=== PATIENT | female | born 1975 | race Caucasian/White ===

== ENCOUNTER 2020-05-17 14:08 | Inpatient (IN) | payer BC ==
[2020-05-17] MEDS ORDERED: amLODIPine 5 MG TAB PO STA (14:46)
[2020-05-17] MEDS ORDERED: SODIUM CHLORIDE 0.9% 500 ML 500 ML IV STA (14:46)
[2020-05-17 15:03] LABS: Basophils # (A) 0.1 k/uL (0-0.2); Basophils % (A) 0 %; Eosinophils # (A) 0.2 k/uL (0-0.7); Eosinophils % (A) 1 %; HCT 42.6 % (34.0-46.0); Lymphocytes # (A) 2.9 k/uL (1.0-4.8); Lymphocytes % (A) 22 %; MCHC 32.9 g/dL (31.0-37.0); MCV 82.2 fL (80.0-100.0); Mean Platelet Volume 6.8; Monocytes # (A) 0.5 k/uL (0-1.0); Monocytes % (A) 3 %; Neutrophils # (A) 9.6 k/uL (1.3-7.7); Neutrophils % (A) 72 %; Platelet Count 413 k/uL (150-450); RBC 5.19 m/uL (3.80-5.40); RDW 14.8 % (11.5-15.5); WBC 13.3 k/uL (3.8-10.6)
[2020-05-17 15:16] LABS: ALT 11 U/L (4-34); AST 18 U/L (14-36); African American GFR (CKD) >90 (>60 ml/min/1.73 sqM); Albumin 4.3 g/dL (3.5-5.0); Alkaline Phosphatase 167 U/L (38-126); Anion Gap 9 mmol/L; Blood Urea Nitrogen 13 mg/dL (7-17); Calcium 10.2 mg/dL (8.4-10.2); Carbon Dioxide 25 mmol/L (22-30); Chloride 101 mmol/L (98-107); Glucose 338 mg/dL (74-99); Non-African American GFR(CKD) >90 (>60 ml/min/1.73 sqM); Potassium 4.3 mmol/L (3.5-5.1); Sodium 135 mmol/L (137-145); Total Bilirubin 0.8 mg/dL (0.2-1.3); Total Protein 8.5 g/dL (6.3-8.2)
[2020-05-17] MEDS ORDERED: LABETALOL 5 MG/ML VIAL MDV IVP STA (15:19)
--- NOTE | 2020-05-17 15:20 | XR ---
EXAMINATION TYPE: XR chest 2V DATE OF EXAM: 05/17/2020 COMPARISON: None INDICATION: Altered mental status TECHNIQUE: Frontal and lateral views of the chest are obtained. FINDINGS: The heart size is normal. The pulmonary vasculature is normal. The lungs are clear. IMPRESSION: 1. No acute pulmonary process.
[2020-05-17 15:22] LABS: INR 0.9 (<1.2); Prothrombin Time 9.5 sec (9.0-12.0)
--- NOTE | 2020-05-17 15:27 | CT ---
EXAMINATION TYPE: CT brain wo con for TPA DATE OF EXAM: 05/17/2020 HISTORY: Left sided numbness and weakness. CT DLP: 1188.4 mGycm. Automated Exposure Control for Dose Reduction was Utilized. TECHNIQUE: CT scan of the head is performed without contrast. COMPARISON: None FINDINGS: There is no acute intracranial hemorrhage, midline shift, or mass effect identified. Brain parenchyma appears normal. The ventricles, sulci, and cisterns are normal in size and configuration. No extra-axial fluid collection. Bones and extracranial soft tissues are intact. The globes are gross ly symmetric. Visualized sinuses and mastoid air cells are clear. IMPRESSION: No acute intracranial hemorrhage, midline shift, or mass effect.
[2020-05-17] MEDS ORDERED: SODIUM CHLORIDE 0.9% 1,000 ML IV SCH (15:30)
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
[2020-05-17 15:39] LABS: Partial Thromboplastin Time 21.5 sec (22.0-30.0)
[2020-05-17] MEDS ORDERED: ASPIRIN 325 MG TAB PO STA (15:42)
--- NOTE | 2020-05-17 15:51 | ED ---
General Adult HPI - General Chief complaint: Recheck/Abnormal Lab/Rx Stated complaint: High Blood Pressure Time Seen by Provider: 05/17/20 14:42 Source: patient, RN notes reviewed, old records reviewed Mode of arrival: ambulatory Limitations: no limitations - History of Present Illness Initial comments: 45-year-old female presenting for evaluation of hypertension. Patient states she was previously on hypertension medication but has not taken this in some time. She called her primary care physician who recommended she present to the emergency department. She had a significantly elevated blood pressure over 200 systolic. Patient admits that on Wednesday she had an episode where she could not speak. She was unable to find words. This was associated with some left arm numbness. Patient has no previous history of TIA or CVA. The symptoms re solved in approximately 10 minutes. This was transferred days prior to arrival in the emergency department. She has no specific complaints the time my evaluation. No chest pain or abdominal pain. No thunderclap headache. No fever chills, no cough or URI. - Related Data Allergies Allergy/AdvReac Type Severity Reaction Status Date / Time No Known Allergies Allergy Verified 05/17/20 14:28 Review of Systems ROS Statement: Those systems with pertinent positive or pertinent negative responses have been documented in the HPI. ROS Other: All systems not noted in ROS Statement are negative. Past Medical History Past Medical History: Hypertension History of Any Multi-Drug Resistant Organisms: None Reported Past Surgical History: Section, Cholecystectomy Past Psychological History: No Psychological Hx Reported Smoking Status: Never smoker Past Alcohol Use History: None Reported Past Drug Use History: None Reported General Exam Limitations: no limitations General appearance: alert, in no apparent distress Head exam: Present: atraumatic, normocephalic Eye exam: Present: normal appearance, PERRL ENT exam: Present: normal exam Neck exam: Present: normal inspection. Absent: tenderness Respiratory exam: Absent: respiratory distress, wheezes Cardiovascular Exam: Present: regular rate, normal rhythm GI/Abdominal exam: Present: soft. Absent: distended, tenderness, guarding Extremities exam: Present: normal inspection, normal capillary refill. Absent: pedal edema Neurological exam: Present: alert, oriented X3, CN II-XII intact. Absent: motor sensory deficit (NIH of 0) Psychiatric exam: Present: normal affect, normal mood Skin exam: Present: warm, dry, intact. Absent: cyanosis, diaphoretic Course Vital Signs 05/17/20 05/17/20 05/17/20 14:22 15:01 15:26 Temperature 98.8 F Pulse Rate 111 H 105 H 109 H Respiratory 20 16 18 Rate Blood Pressure 257/121 225/194 217/124 O2 Sat by Pulse 98 97 98 Oximetry 05/17/20 05/17/20 15:32 16:05 Temperature Pulse Rate 88 93 Respiratory 18 18 Rate Blood Pressure 207/107 200/110 O2 Sat by Pulse 97 98 Oximetry EKG Findings - EKG Comments: EKG Findings:: EKG: Normal sinus rhythm, LVH, rate of 91, OR interval 170, QRS duration 92, QTC 452, no ST segment elevation Medical Decision Making - Medical Decision Making 45-year-old female presenting with hypertension, and history concerning for TIA. She has normal neurologic exam. NIH is 0. Very elevated blood pressure 240/ 140. She is given Norvasc, labetalol in the emergency department. Head CT is performed which is negative for intracranial hemorrhage or mass effect. Chest x-rays negative for acute cardiopulmonary disease. She has normal stable hemoglobin, normal kidney for his, normal x-rays, she has significantly elevated blood sugar 348 with no history of diabetes. She has been evaluated by Dr. Torres in the emergency department case has been discussed with Dr. Roth who will admit. Further TIA workup has been initiated. Blood pressure will be monitored closely. - Lab Data Result diagrams: 05/17/20 14:53 05/17/20 14:53 Lab Results 05/17/20 05/17/20 05/17/20 Range/Units 14:53 14:53 14:53 WBC 13.3 H (3.8-10.6) k/uL RBC 5.19 (3.80-5.40) m/uL Hgb 14.0 (11.4-16.0) gm/dL Hct 42.6 (34.0-46.0) % MCV 82.2 (80.0-100.0) fL MCH 27.0 (25.0-35.0) pg MCHC 32.9 (31.0-37.0) g/dL RDW 14.8 (11.5-15.5) % Plt Count 413 (150-450) k/uL Neutrophils % 72 % Lymphocytes % 22 % Monocytes % 3 % Eosinophils % 1 % Basophils % 0 % Neutrophils # 9.6 H (1.3-7.7) k/uL Lymphocytes # 2.9 (1.0-4.8) k/uL Monocytes # 0.5 (0-1.0) k/uL Eosinophils # 0.2 (0-0.7) k/uL Basophils # 0.1 (0-0.2) k/uL PT 9.5 (9.0-12.0) sec INR 0.9 (<1.2) APTT 21.5 L (22.0-30.0) sec Sodium 135 L (137-145) mmol/L Potassium 4.3 (3.5-5.1) mmol/L Chloride 101 (98-107) mmol/L Carbon Dioxide 25 (22-30) mmol/L Anion Gap 9 mmol/L BUN 13 (7-17) mg/dL Creatinine 0.52 (0.52-1.04) mg/dL Est GFR (CKD-EPI)AfAm >90 (>60 ml/min/1.73 sqM) Est GFR (CKD-EPI)NonAf >90 (>60 ml/min/1.73 sqM) Glucose 338 H (74-99) mg/dL Calcium 10.2 (8.4-10.2) mg/dL Total Bilirubin 0.8 (0.2-1.3) mg/dL AST 18 (14-36) U/L ALT 11 (4-34) U/L Alkaline Phosphatase 167 H (38-126) U/L Troponin I (0.000-0.034) ng/mL Total Protein 8.5 H (6.3-8.2) g/dL Albumin 4.3 (3.5-5.0) g/dL 05/17/20 Range/Units 14:53 WBC (3.8-10.6) k/uL RBC (3.80-5.40) m/uL Hgb (11.4-16.0) gm/dL Hct (34.0-46.0) % MCV (80.0-100.0) fL MCH (25.0-35.0) pg MCHC (31.0-37.0) g/dL RDW (11.5-15.5) % Plt Count (150-450) k/uL Neutrophils % % Lymphocytes % % Monocytes % % Eosinophils % % Basophils % % Neutrophils # (1.3-7.7) k/uL Lymphocytes # (1.0-4.8) k/uL Monocytes # (0-1.0) k/uL Eosinophils # (0-0.7) k/uL Basophils # (0-0.2) k/uL PT (9.0-12.0) sec INR (<1.2) APTT (22.0-30.0) sec Sodium (137-145) mmol/L Potassium (3.5-5.1) mmol/L Chloride (98-107) mmol/L Carbon Dioxide (22-30) mmol/L Anion Gap mmol/L BUN (7-17) mg/dL Creatinine (0.52-1.04) mg/dL Est GFR (CKD-EPI)AfAm (>60 ml/min/1.73 sqM) Est GFR (CKD-EPI)NonAf (>60 ml/min/1.73 sqM) Glucose (74-99) mg/dL Calcium (8.4-10.2) mg/dL Total Bilirubin (0.2-1.3) mg/dL AST (14-36) U/L ALT (4-34) U/L Alkaline Phosphatase (38-126) U/L Troponin I <0.012 (0.000-0.034) ng/mL Total Protein (6.3-8.2) g/dL Albumin (3.5-5.0) g/dL Critical Care Time Critical Care Time: Yes Total Critical Care Time: 35 Disposition Clinical Impression: TIA (transient ischemic attack), Hypertension, Hypertensive urgency Disposition: ADMITTED IP TO THIS [facility] Condition: Stable Is patient prescribed a controlled substance at d/c from ED?: No Referrals: None,Stated [Primary Care Provider] - 1-2 days Decision to Admit Reason: Admit from EC Decision Date: 05/17/20 Decision Time: 16:20
--- NOTE | 2020-05-17 17:33 | CT ---
EXAMINATION TYPE: CT angio head neck DATE OF EXAM: 05/17/2020 COMPARISON: HISTORY: Left sided weakness with HTN. CT DLP: 1027.4 mGycm Automated exposure control for dose reduction was used. CONTRAST: Performed with IV Contrast, patient injected with 65 mL of Isovue 370. Images obtained from the aortic arch to the vertex of the brain with 3-D post processed images. FINDINGS: There is normal branching pattern of the great vessels on the aortic arch. There is arterial flow in both subclavian arteries. There is arterial flow in the common internal and external carotid arteries bilaterally. There is wide patency of the carotid artery bifurcations. There is arterial flow in bot h vertebral arteries which appear widely patent. There is no evidence of carotid or vertebral artery aneurysm or dissection. There is arterial flow in the anterior middle and posterior cerebral arteries. There is arterial flow in the vertebrobasilar artery system. There is no evidence of arterial stenosis. There is no mass ef fect. There is no sign of aneurysm or neovascularity. There is normal contrast opacification of the v enous sinuses. IMPRESSION: Normal CT angiogram of the neck. Normal CT angiogram of the brain.
[2020-05-17] MEDS ORDERED: ALPRAZolam 0.25 MG TAB PO PRN (19:20)
[2020-05-17 20:17] LABS: Glucose,Whole Blood 314 mg/dL (75-99)
[2020-05-17] MEDS: cloNIDine HCL 0.1 MG TAB PO PRN (20:19)
--- NOTE | 2020-05-17 20:44 | HP ---
HISTORY AND PHYSICAL CHIEF COMPLAINTS: Slurring of speech and numbness of the left hand and hypertension. HISTORY OF PRESENT ILLNESS: This 45-year-old woman with a past medical history of hypertension, cholecystectomy, to be followed by Dr. Henry in the outpatient setting, apparently was noted to have some slurring of speech as well as some weakness and numbness of left hand which lasted for about 10 minutes. The patient was evaluated by her primary care physician. The blood pressure was found to be elevated up to 204/117. The patient was taken to [facility] and was admitted for further evaluation and treatment. Initial workup for stroke was negative. Neurology evaluation is in progress at this time. CT angio was done and MRI is pending at this time. There is no history of any fever, rigor or chills. No history of headache, loss of consciousness, seizures at this time. Aggressive control of blood pressure recommended by Dr. Torres. PAST MEDICAL HISTORY: History of hypertension, history of cholecystectomy, section. MEDICATIONS: None. ALLERGIES: NONE. FAMILY HISTORY: History of lymphoma, leukemia, multiple myeloma. SOCIAL HISTORY: No history of smoking. No history of alcohol intake. REVIEW OF SYSTEMS: ENT: No diminished hearing. No diminished vision. CARDIOVASCULAR SYSTEM: No angina, palpitations. RESPIRATORY SYSTEM: As mentioned earlier. GI: No nausea, vomiting. : No dysuria or retention. NERVOUS SYSTEM: No numbness, weakness. ALLERGY/IMMUNOLOGY: No asthma, hayfever. MUSCULOSKELETAL: As mentioned earlier. HEMATOLOGY/ONCOLOGY: No history of anemia. ENDOCRINE: No history of diabetes, hypothyroidism. CONSTITUTIONAL: As mentioned earlier. DERMATOLOGY: Negative. RHEUMATOLOGY: Negative. PSYCHIATRY: As mentioned earlier. PHYSICAL EXAMINATION: Patient alert and oriented x3. Pulse 90, blood pressure 160/90, respiration 18, temperature 98.1, pulse ox 97% on room air. HEENT: Conjunctivae normal. Oral mucosa moist. NECK: No jugular venous distention. No carotid bruit. No lymph node enlargement. CARDIOVASCULAR SYSTEM: S1, S2 muffled. No S3. No S4. RESPIRATORY SYSTEM: Breath sounds diminished at the bases. No rhonchi. No crackles. ABDOMEN: Soft, non-tender. No mass palpable. LEGS: No edema. No swelling. NERVOUS SYSTEM: Higher functions as mentioned earlier. Moves all 4 limbs. No focal motor or sensory deficit. LYMPHATICS: No lymph node palpable in neck, axillae or groin. SKIN: No ulcer, rash, bleeding. JOINTS: No active deforming arthropathy. LABS: Labs at this time show WBC 13.3 and sodium 135. Glucose is 338. ASSESSMENT: 1. Accelerated hypertension. 2. Acute transient ischemic attack with slurring of speech and left-sided numbness, possibly right hemispheric lesion. 3. Increased white count. 4. Hyponatremia. 5. Diabetes mellitus, type 2, new onset, uncontrolled. 6. Increased alkaline phosphatase. 7. History of hypertension. 8. History of cholecystectomy. 9. Obesity with body mass index of 38.9. 10.FULL CODE. RECOMMENDATIONS AND DISCUSSION: In this 45-year-old woman who presented with multiple complex medical issues, we will monitor the patient closely, continue the current medications, continue symptomatic treatment. Will initiate beta blockers and Norvasc and continue to monitor. Antiplatelet agents, Lipitor. Full neurovascular workup. Neurology consultation. Prognosis guarded because of multiple complex medical issues. Further recommendations to follow. A copy of this dictation is being forwarded to Dr. Henry, who is going to be the primary physician. MMODL / IJN: [id number] /
[2020-05-17] MEDS: HEPARIN SODIUM,PORCINE 5,000 UNIT/ML 1 ML VIAL SQ SCH (22:01)
[2020-05-17] MEDS: INSULIN ASPART (NovoLOG) 100 UNIT/ML VIAL SQ SCH (22:02)
[2020-05-17] MEDS: METOPROLOL TARTRATE 50 MG TAB PO SCH (22:02)
[2020-05-17 22:34] LABS: Amphetamine Screen,Urine Not Detected (NotDetected); Barbiturate Screen,Urine Not Detected (NotDetected); Benzodiazepines Screen,Urine Not Detected (NotDetected); Cocaine Screen,Urine Not Detected (NotDetected); Methadone Screen, Urine Not Detected (NotDetected); Opiate Screen,Urine Not Detected (NotDetected); Oxycodone Screen, Urine Not Detected (NotDetected); Phencyclidine Screen,Urine Not Detected (NotDetected); Tricyclic Antidepressant,Urine Not Detected (NotDetected); Urn Cannabinoid Scrn Not Detected (NotDetected)
[2020-05-18 04:51] LABS: Estimated Average Glucose 332.14; Hemoglobin A1C 13.2 % (4.0-6.0)
[2020-05-18 06:33] LABS: Glucose,Whole Blood 252 mg/dL (75-99)
[2020-05-18] MEDS: INSULIN ASPART (NovoLOG) 100 UNIT/ML VIAL SQ SCH ×4 (06:43→21:44)
[2020-05-18] MEDS: PANTOPRAZOLE 40 MG TABLET PO SCH (06:43)
[2020-05-18 08:12] LABS: Basophils % (A) 0 %; Eosinophils # (A) 0.1 k/uL (0-0.7); Eosinophils % (A) 1 %; HCT 38.1 % (34.0-46.0); Lymphocytes # (A) 2.7 k/uL (1.0-4.8); Lymphocytes % (A) 26 %; MCH 26.3 pg (25.0-35.0); MCHC 31.5 g/dL (31.0-37.0); MCV 83.6 fL (80.0-100.0); Monocytes # (A) 0.3 k/uL (0-1.0); Monocytes % (A) 3 %; Neutrophils % (A) 68 %; Platelet Count 358 k/uL (150-450); RBC 4.55 m/uL (3.80-5.40); RDW 15.1 % (11.5-15.5); WBC 10.3 k/uL (3.8-10.6)
[2020-05-18 08:31] LABS: African American GFR (CKD) >90 (>60 ml/min/1.73 sqM); Anion Gap 7 mmol/L; Blood Urea Nitrogen 10 mg/dL (7-17); Calcium 9.1 mg/dL (8.4-10.2); Carbon Dioxide 27 mmol/L (22-30); Chloride 101 mmol/L (98-107); Cholesterol 198 mg/dL (<200); Glucose 239 mg/dL (74-99); HDL Cholesterol 39 mg/dL (40-60); Non-African American GFR(CKD) >90 (>60 ml/min/1.73 sqM); Sodium 135 mmol/L (137-145); Triglycerides 402 mg/dL (<150)
--- NOTE | 2020-05-18 08:52 | MR ---
EXAMINATION TYPE: MR brain wo con DATE OF EXAM: 05/18/2020 COMPARISON: NONE HISTORY: Dizziness, numbness/tingling in left arm and tongue, loss of speech, 5 min duration TECHNIQUE: T1-weighted sagittal, T2, FLAIR, and diffusion axial, and T2 coronal coronal views of the brain are submitted. FINDINGS: On diffusion there is increased signal along the frontal lobes bilaterally which most likely is artif actual but should be correlated clinically particular attention to image 24. Tiny areas of abnormal signal seen in the thalamus and basal ganglia may be related to prominent Virc how-Claudio spaces in time and remote lacunar infarct. Changes of chronic sinusitis are seen. No midlin e shift or mass effect. Craniocervical junction maintained and sella turcica has a normal appearance. Trace amount of fluid surrounding the optic nerves greater than left. IMPRESSION: 1. Tiny areas of abnormal signal seen in the upper anterior frontal cortex of the frontal lobes bilat erally felt to be more likely artifactual rather than tiny areas of acute ischemia. Correlate with th e patient's symptoms. 2. Trace amount of fluid surrounding the optic nerve on the left. Correlate with ocular exam as this can occasionally be seen with papilledema. 3. Chronic sinusitis.
[2020-05-18] MEDS: amLODIPine 10 MG TAB PO SCH (09:04)
[2020-05-18] MEDS: HEPARIN SODIUM,PORCINE 5,000 UNIT/ML 1 ML VIAL SQ SCH ×2 (09:04→21:44)
[2020-05-18] MEDS: ASPIRIN 325 MG TAB PO SCH (09:04)
[2020-05-18] MEDS: METOPROLOL TARTRATE 50 MG TAB PO SCH (09:04)
[2020-05-18] MEDS: cloNIDine HCL 0.1 MG TAB PO PRN ×2 (09:04→13:27)
[2020-05-18] MEDS: HYDROcodone/APAP 5-325MG 1 EACH TAB PO PRN (09:13)
[2020-05-18 11:13] VITALS: BMI 40.2
[2020-05-18 11:54] LABS: Glucose,Whole Blood 343 mg/dL (75-99)
[2020-05-18] MEDS ORDERED: ONDANSETRON 4 MG/2 ML VIAL IVP PRN (12:34)
[2020-05-18] MEDS ORDERED: lisinopriL 10 MG TAB PO SCH (14:30)
[2020-05-18] MEDS ORDERED: hydrALAZINE HCL 20 MG/ML 1 ML VIAL IVP PRN (14:43)
[2020-05-18] MEDS ORDERED: INSULIN DETEMIR (LEVEMIR) 100 UNIT/ML SYR SQ ONE (15:00)
--- NOTE | 2020-05-18 15:53 | PN ---
PROGRESS NOTE DATE OF SERVICE: 05/18/2020 This 45-year-old woman who was admitted with acute accelerated hypertension/TIA is being closely monitored. MRI did not show acute abnormality. Angiogram is negative. No chest pain. No palpitations. No fever. Complaints of headache and nausea. PHYSICAL EXAMINATION: Alert and oriented times three. Pulse 86, blood pressure 118/91, respirations 16, temperature 98.2, pulse ox 97% on room air. HEENT: Conjunctivae normal. NECK: No JVD. CARDIOVASCULAR: S1, S2. Respirations: Breath sounds diminished in the bases. A few scattered rhonchi and crackles. ABDOMEN: Soft, nontender. LEGS are no edema. No swelling. NERVOUS SYSTEM: No focal deficits. LABS: Glucose is 343. Drug screen is negative. ASSESSMENT: 1. Accelerated hypertension. 2. Acute transient ischemic attack and slurring of speech and left-sided numbness. 3. Possibly left hemispheric lesion. 4. Increased WBC. 5. Diabetes mellitus type 2. 6. Hyperglycemia with new onset uncontrolled. 7. Hyponatremia. 8. Increased alkaline phosphatase. 9. History of hypertension. 10.History of cholecystectomy. 11.Obesity with body mass index of 38.9. 12.FULL CODE. RECOMMENDATIONS AND DISCUSSION: Recommend to continue current management and symptomatic treatment. Otherwise at this time we will add lisinopril to the current regimen. I would also recommend increase the dose of Lantus and continue to monitor. Further recommendations to follow. MMODL / IJN: [id number] /
--- NOTE | 2020-05-18 16:44 | ECHOF ---
Referral Reason:Stroke MEASUREMENTS -------- HEIGHT: 165.1 cm WEIGHT: 109.3 kg BP: 149/71 RVIDd: 3.1 cm (< 3.3) IVSd: 1.6 cm (0.6 - 1.1) LVIDd: 3.7 cm (3.9 - 5.3) LVPWd: 1.6 cm (0.6 - 1.1) IVSs: 1.8 cm LVIDs: 2.9 cm LVPWs: 2.2 cm LA Diam: 3.9 cm (2.7 - 3.8) LAESV Index (A-L): 32.25 ml/m Ao Diam: 3.2 cm (2.0 - 3.7) AV Cusp: 1.9 cm (1.5 - 2.6) MV EXCURSION: 16.226 mm (> 18.000) MV EF SLOPE: 100 mm/s (70 - 150) EPSS: 0.7 cm MV E Ken: 1.16 m/s MV DecT: 190 ms MV A Ken: 1.35 m/s MV E/A Ratio: 0.85 AV maxP.80 mmHg AV meanP.04 mmHg FINDINGS -------- Sinus rhythm. This was a technically good study. The left ventricular size is normal. There is moderate concentric left ventricular hypertrophy. O verall left ventricular systolic function is normal with, an EF between 60 - 65 %. The right ventricle is normal in size. LA is midly dilated 29-33ml/m2. The right atrium is normal in size. Interatrial and interventricular septum intact. The aortic valve is trileaflet and appears structurally normal. Mild mitral regurgitation is present. The tricuspid valve appears structurally normal. There is no pulmonic regurgitation present. The aortic root size is normal. Normal inferior vena cava with normal inspiratory collapse consistent with estimated right atrial pre ssure of 5 mmHg. Echo free space indicative of a pericardial fat pad. There is no pericardial effusion. CONCLUSIONS -------- 1. The left ventricular size is normal. 2. There is moderate concentric left ventricular hypertrophy. 3. Overall left ventricular systolic function is normal with, an EF between 60 - 65 %. 4. LA is midly dilated 29-33ml/m2. 5. Mild mitral regurgitation is present. 6. Echo free space indicative of a pericardial fat pad. ACCOUNT REVIEW SPECIALIST: Daya Galindo RDCS
[2020-05-18 17:33] LABS: Glucose,Whole Blood 222 mg/dL (75-99)
[2020-05-18] MEDS: metFORMIN 500 MG TAB PO SCH (17:43)
[2020-05-18 18:23] LABS: Glucose,Whole Blood 266 mg/dL (75-99)
[2020-05-18] MEDS ORDERED: atenoloL 25 MG TAB PO SCH (19:00)
[2020-05-18] MEDS: lisinopriL 10 MG TAB PO SCH (19:38)
[2020-05-18 20:43] LABS: Glucose,Whole Blood 311 mg/dL (75-99)
[2020-05-19] MEDS: HYDROcodone/APAP 5-325MG 1 EACH TAB PO PRN ×2 (00:17→16:03)
[2020-05-19 06:22] LABS: Glucose,Whole Blood 233 mg/dL (75-99)
[2020-05-19] MEDS: cloNIDine HCL 0.1 MG TAB PO PRN (06:29)
[2020-05-19] MEDS: PANTOPRAZOLE 40 MG TABLET PO SCH (06:53)
[2020-05-19 07:11] LABS: Basophils % (A) 0 %; Eosinophils # (A) 0.1 k/uL (0-0.7); Eosinophils % (A) 1 %; HGB 12.6 gm/dL (11.4-16.0); Lymphocytes # (A) 3.1 k/uL (1.0-4.8); Lymphocytes % (A) 23 %; MCHC 32.4 g/dL (31.0-37.0); MCV 83.3 fL (80.0-100.0); Mean Platelet Volume 6.9; Monocytes # (A) 0.6 k/uL (0-1.0); Monocytes % (A) 4 %; Neutrophils # (A) 9.2 k/uL (1.3-7.7); Neutrophils % (A) 70 %; Platelet Count 411 k/uL (150-450); RBC 4.68 m/uL (3.80-5.40); WBC 13.2 k/uL (3.8-10.6)
[2020-05-19 07:22] LABS: African American GFR (CKD) >90 (>60 ml/min/1.73 sqM); Anion Gap 8 mmol/L; Blood Urea Nitrogen 15 mg/dL (7-17); Calcium 9.4 mg/dL (8.4-10.2); Carbon Dioxide 25 mmol/L (22-30); Chloride 102 mmol/L (98-107); Glucose 286 mg/dL (74-99); Non-African American GFR(CKD) >90 (>60 ml/min/1.73 sqM); Potassium 4.7 mmol/L (3.5-5.1); Sodium 135 mmol/L (137-145)
[2020-05-19 08:27] LABS: Glucose,Whole Blood 248 mg/dL (75-99)
[2020-05-19] MEDS: atenoloL 50 MG TAB PO SCH (08:57)
[2020-05-19] MEDS: lisinopriL 10 MG TAB PO SCH ×2 (08:57→21:02)
[2020-05-19] MEDS: amLODIPine 10 MG TAB PO SCH (08:57)
[2020-05-19] MEDS: INSULIN DETEMIR (LEVEMIR) 100 UNIT/ML SYR SQ SCH ×2 (08:58→21:03)
[2020-05-19] MEDS: INSULIN ASPART (NovoLOG) 100 UNIT/ML VIAL SQ SCH ×4 (08:58→21:03)
[2020-05-19] MEDS: HEPARIN SODIUM,PORCINE 5,000 UNIT/ML 1 ML VIAL SQ SCH ×2 (08:58→21:02)
[2020-05-19] MEDS: metFORMIN 500 MG TAB PO SCH ×2 (08:58→17:14)
[2020-05-19] MEDS: ASPIRIN 325 MG TAB PO SCH (08:58)
[2020-05-19 12:07] LABS: Glucose,Whole Blood 217 mg/dL (75-99)
--- NOTE | 2020-05-19 16:00 | PN ---
PROGRESS NOTE DATE OF SERVICE: 05/19/2020 This is a 45-year-old woman who was admitted with acute accelerated hypertension and hypertensive urgency, also had features of TIA. The patient's blood pressure is fluctuating. Patient has labile hypertension. The patient is on multiple blood pressure medication. Patient also complaining of tingling of the left arm. TIA was considered. The patient had extensive neurovascular workup which was negative. Neurology has seen the patient. There is no history of chest pain and brain MRI has been done. A 2D echo was done yesterday which was reviewed personally by me and showed an ejection fraction about 60-65% and mild mitral regurgitation. The patient also had elevated blood sugars with a hemoglobin A1c around more than 13. Patient is on IV Lantus at this time. PAST MEDICAL HISTORY: Reviewed. REVIEW OF SYSTEMS: CARDIOVASCULAR: No angina. RESPIRATORY: As mentioned earlier. GI: As mentioned earlier. : No dysuria. NERVOUS SYSTEM: No numbness or weakness. CURRENT MEDICATIONS: Reviewed and include [place], Xanax, Norvasc, aspirin, Tenormin, Catapres p.r.n., heparin, Apresoline p.r.n., Levemir, Zestril, Glucophage, Zofran, Protonix. PHYSICAL EXAMINATION: GENERAL: Patient is alert and oriented times three. VITAL SIGNS: Pulse 73, blood pressure 140/70, respirations 18, temperature 98.3, pulse ox 98% on room air HEENT: Conjunctivae normal. NECK: No jugular venous distention. RESPIRATORY: Breath sounds diminished at the bases. A few scattered rhonchi and crackles. HEART: S1 and S2, muffled. ABDOMEN: Soft, no tenderness. No masses palpable. EXTREMITIES: No edema, no swelling. NERVOUS: No focal deficits. LAB STUDIES: WBC 13.8, Hemoglobin 12.2, sodium 135. Accu-Cheks are noted 248 to 217. ASSESSMENT: 1. Accelerated hypertension and hypertensive urgency. 2. Acute transient ischemic attack and slurring of speech and left hand numbness caused by right hemispheric lesion. 3. Increased WBC. 4. Acute gastritis. 5. Diabetes mellitus type 2, uncontrolled with hyperglycemia, new onset, hemoglobin A1c 13.2. 6. Hyponatremia. 7. Increased alkaline phosphatase. 8. History hypertension. 9. History of cholecystectomy. 10.Obesity with body mass of 38.9. 11.FULL CODE. RECOMMENDATIONS AND DISCUSSION: I recommend to continue current medications, continue symptomatic treatment. Adjust the blood pressure medication. I would recommend cardiology consultation. Neurology is following the patient closely. I would provide symptomatic treatment. Monitor blood pressure closely. Continue adjustments. Prognosis guarded because of multiple complex medical issues. Further recommendations to follow. MMODL / IJN: [id number] /
[2020-05-19 16:52] LABS: Glucose,Whole Blood 183 mg/dL (75-99)
[2020-05-19 20:57] LABS: Glucose,Whole Blood 169 mg/dL (75-99)
[2020-05-19] MEDS: PANTOPRAZOLE 40 MG/10 ML VIAL IVP SCH (21:03)
[2020-05-20] MEDS ORDERED: ONDANSETRON 4 MG/2 ML VIAL ONE (04:30)
[2020-05-20 04:40] LABS: Glucose,Whole Blood 203 mg/dL (75-99)
[2020-05-20 06:26] LABS: Glucose,Whole Blood 238 mg/dL (75-99)
[2020-05-20] MEDS: metFORMIN 500 MG TAB PO SCH (07:09)
[2020-05-20] MEDS: INSULIN ASPART (NovoLOG) 100 UNIT/ML VIAL SQ SCH ×2 (07:10→12:31)
[2020-05-20 07:56] LABS: Basophils % (A) 0 %; Eosinophils # (A) 0.1 k/uL (0-0.7); Eosinophils % (A) 0 %; HCT 42.6 % (34.0-46.0); HGB 13.6 gm/dL (11.4-16.0); Lymphocytes # (A) 2.2 k/uL (1.0-4.8); Lymphocytes % (A) 13 %; MCH 26.7 pg (25.0-35.0); MCHC 31.8 g/dL (31.0-37.0); MCV 83.8 fL (80.0-100.0); Monocytes # (A) 0.4 k/uL (0-1.0); Monocytes % (A) 3 %; Neutrophils # (A) 14.8 k/uL (1.3-7.7); Neutrophils % (A) 84 %; Platelet Count 475 k/uL (150-450); RBC 5.09 m/uL (3.80-5.40); RDW 14.9 % (11.5-15.5); WBC 17.6 k/uL (3.8-10.6)
[2020-05-20 08:09] LABS: African American GFR (CKD) >90 (>60 ml/min/1.73 sqM); Anion Gap 10 mmol/L; Blood Urea Nitrogen 18 mg/dL (7-17); Calcium 9.4 mg/dL (8.4-10.2); Carbon Dioxide 23 mmol/L (22-30); Chloride 101 mmol/L (98-107); Glucose 282 mg/dL (74-99); Non-African American GFR(CKD) >90 (>60 ml/min/1.73 sqM); Potassium 4.3 mmol/L (3.5-5.1); Sodium 134 mmol/L (137-145)
[2020-05-20] MEDS: ASPIRIN 325 MG TAB PO SCH (08:12)
[2020-05-20] MEDS: amLODIPine 10 MG TAB PO SCH (08:12)
[2020-05-20] MEDS: lisinopriL 10 MG TAB PO SCH (08:12)
[2020-05-20] MEDS: atenoloL 50 MG TAB PO SCH (08:12)
[2020-05-20] MEDS: HEPARIN SODIUM,PORCINE 5,000 UNIT/ML 1 ML VIAL SQ SCH (08:13)
[2020-05-20] MEDS: PANTOPRAZOLE 40 MG/10 ML VIAL IVP SCH (08:13)
[2020-05-20] MEDS: INSULIN DETEMIR (LEVEMIR) 100 UNIT/ML SYR SQ SCH (08:13)
[2020-05-20] MEDS ORDERED: APIXABAN 5 MG TAB PO SCH (11:30)
[2020-05-20 11:56] LABS: Glucose,Whole Blood 226 mg/dL (75-99)
[2020-05-20] MEDS ORDERED: ATORVASTATIN 40 MG TAB PO SCH (12:15)
[2020-05-20 12:18] LABS: Appearance,Urine Cloudy (Clear); Bacteria,Urine Rare /hpf; Bilirubin,Urine Negative (Negative); Blood,Urine Negative (Negative); Color,Urine Yellow; Glucose,Urine (UA) 4+ (Negative); Leukocyte Esterase,Urine Negative (Negative); Mucus,Urine Few /hpf; Nitrite,Urine Negative (Negative); PH, Urine 5.5 (5.0-8.0); Protein,Urine 1+ (Negative); Specific Gravity,Urine 1.019 (1.001-1.035); Squamous Epithelial Cell,Urine 6 /hpf (0-4); Urobilinogen,Urine <2.0 mg/dL (<2.0); WBC,Urine 2 /hpf (0-5)
[2020-05-20 12:22] LABS: Ketones,Urine 2+ (Negative)
--- NOTE | 2020-05-20 13:00 | CONS ---
CONSULTATION REASON FOR CONSULTATION: Episode of paroxysmal atrial fibrillation in a patient with a prior with known diabetes, hypertension, and TIA. Mrs. Dayanara Vargas is a 45-year-old lady with a diagnosis of hypertension who has not been very compliant with medications. Also has been diagnosed to have type 2 diabetes. She came in with what seems to be a TIA-like presentation and was also seen by Neurology. When she came in, she was in sinus rhythm and no atrial fibrillation was seen until yesterday. She has history of what seems to be an expressive aphasia briefly with tingling of the left arm, tongue that resolved within 5-7 minutes. She also had accelerated blood pressure at this time and elevated blood sugar. However. At the time of my evaluation, she is absolutely comfortable. No symptoms whatsoever. On reviewing the rhythm strips, the patient did have atrial fib with moderate ventricular rate but she is back in sinus rhythm with PACs at this time. PAST MEDICAL HISTORY: Recent diagnosis of hypertension and type 2 diabetes. She has migraine headaches. She was diagnosed with a TIA and seen by Neurology. EKG that was performed recently revealed atrial fibrillation with moderately rapid ventricular rate. She is now in sinus with PACs. MEDICATIONS AT HOME: Patient has not been not very compliant with medications and apparently she has not been taking any regular medications , but she is known to have hypertension and came in with accelerated hypertension as 1 of her presentations. She was given multiple medications for BP control. She also was found to have elevated blood sugar. PHYSICAL EXAMINATION: On examination, blood pressure is 140/70, pulse rate is about 80 per minute, irregular with PACs. HEENT: Unremarkable. Fundus was not examined by me. NECK: Supple. No JVD. I do not hear a carotid bruit. There is no thyromegaly. HEART: Exam reveals S1, S2 heard normally. There are occasional irregular beats, appears to be PACs on the monitor. Short systolic murmur left lower sternal border. Lungs revealed decent air entry. ABDOMEN: Soft, nontender. Lower extremities reveal diminished pulses. Central nervous system is normal. EKG performed yesterday revealed atrial fibrillation, moderate ventricular rate. Now rhythm strip appears to be sinus. Fundus was corrected. She had a CT angiogram of the head and neck, which revealed no significant disease. No significant obstruction of any major vessels. IMPRESSION: 1. Paroxysmal atrial fibrillation which could be an etiological factor for her TIA. 2. Accelerated hypertension under better control. 3. New onset type 2 diabetes mellitus. 4. History of migraine headaches. RECOMMENDATIONS: I am recommending that we will we will start her on Eliquis 5 mg b.i.d. given her atrial fibrillation and TIA. I am also increasing the metoprolol tartrate to 50 mg b.i.d. Her blood pressure is reasonably well controlled. I will add atorvastatin 40 mg p.o. daily and we will optimize her blood pressure control which appears to be fairly decent at this time and we will continue to monitor her telemetry. I will discontinue aspirin and speak to the neurologist. I discussed my thoughts in detail with the patient and and advised that she should be very compliant with her medications and optimize her BP control and also follow up with her PCP on a regular basis. Thank you very much for the consult. SARAH / GIOVANNA: [id number] /
[2020-05-20 13:08] LABS: Basophils % (A) 0 %; Eosinophils # (A) 0.3 k/uL (0-0.7); Eosinophils % (A) 2 %; HCT 42.3 % (34.0-46.0); HGB 13.4 gm/dL (11.4-16.0); Lymphocytes # (A) 2.4 k/uL (1.0-4.8); Lymphocytes % (A) 14 %; MCH 26.6 pg (25.0-35.0); MCHC 31.8 g/dL (31.0-37.0); MCV 83.5 fL (80.0-100.0); Mean Platelet Volume 9.1; Monocytes # (A) 0.4 k/uL (0-1.0); Monocytes % (A) 2 %; Neutrophils # (A) 13.7 k/uL (1.3-7.7); Neutrophils % (A) 81 %; Platelet Count 400 k/uL (150-450); RBC 5.06 m/uL (3.80-5.40); RDW 15.1 % (11.5-15.5); WBC 16.9 k/uL (3.8-10.6)
[2020-05-20 13:46] VITALS: BP 197/79; PULSE 100; RESP 18; TEMP 98.4
--- NOTE | 2020-05-20 15:58 | P.PN ---
Subjective Progress Note Date: 05/20/20 Patient was seen for a follow-up. Patient apparently started throwing up last night, and at that time her rhythm on the telemetry monitoring changed to atrial fibrillation. She is still in atrial fibrillation. Cardiology has seen the patient, recommending long-term anticoagulation. Patient states that she had migraine for last couple days. She feels the vomiting was related to migraine. Patient states that on 05/18/2020, patient had another episode of numbness of the left arm and tongue, but there was no associated slurred speech, and it lasted for 4 minutes and then resolved. At present she feels fine. Objective - Vital Signs Vital signs: Vital Signs Temp 98.4 F 05/20/20 12:00 Pulse 100 05/20/20 12:00 Resp 18 05/20/20 12:00 BP 197/79 05/20/20 12:00 Pulse Ox 99 05/20/20 12:00 Intake & Output 05/19/20 05/20/20 05/20/20 18:59 06:59 18:59 Intake Total 0 Output Total 400 Balance -400 0 Weight 108.1 kg Intake: Oral 0 Output: Emesis 400 Other: Voiding Method Toilet Toilet Toilet # Voids 3 3 - Exam On examination patient is a middle aged female, in no acute distress. Patient is alert and awake fully oriented speech and language functions are normal. Pupils are round and reacting, visual garcia are full, extraocular muscles are intact. Face is symmetric, tongue protrudes the midline. On muscle strength testing there is no pronator drift and the strength is normal in arms and legs. No ataxia. Tone and bulk of muscles normal. - Labs CBC & Chem 7: 05/20/20 12:52 05/20/20 07:35 Labs: Abnormal Lab Results - Last 24 Hours (Table) 05/19/20 05/19/20 05/20/20 Range/Units 16:51 20:55 04:38 WBC (3.8-10.6) k/uL Plt Count (150-450) k/uL Neutrophils # (1.3-7.7) k/uL ESR (0-20) mm/hr Sodium (137-145) mmol/L BUN (7-17) mg/dL Glucose (74-99) mg/dL POC Glucose (mg/dL) 183 H 169 H 203 H (75-99) mg/dL C-Reactive Protein (<10.0) mg/L Urine Appearance (Clear) Urine Protein (Negative) Urine Glucose (UA) (Negative) Urine Ketones (Negative) Ur Squamous Epith Cells (0-4) /hpf Urine Bacteria (None) /hpf Urine Mucus (None) /hpf 05/20/20 05/20/20 05/20/20 Range/Units 06:25 07:35 07:35 WBC 17.6 H (3.8-10.6) k/uL Plt Count 475 H (150-450) k/uL Neutrophils # 14.8 H (1.3-7.7) k/uL ESR (0-20) mm/hr Sodium 134 L (137-145) mmol/L BUN 18 H (7-17) mg/dL Glucose 282 H (74-99) mg/dL POC Glucose (mg/dL) 238 H (75-99) mg/dL C-Reactive Protein (<10.0) mg/L Urine Appearance (Clear) Urine Protein (Negative) Urine Glucose (UA) (Negative) Urine Ketones (Negative) Ur Squamous Epith Cells (0-4) /hpf Urine Bacteria (None) /hpf Urine Mucus (None) /hpf 05/20/20 05/20/20 05/20/20 Range/Units 07:35 07:35 11:15 WBC (3.8-10.6) k/uL Plt Count (150-450) k/uL Neutrophils # (1.3-7.7) k/uL ESR 76 H (0-20) mm/hr Sodium (137-145) mmol/L BUN (7-17) mg/dL Glucose (74-99) mg/dL POC Glucose (mg/dL) (75-99) mg/dL C-Reactive Protein 25.4 H (<10.0) mg/L Urine Appearance Cloudy H (Clear) Urine Protein 1+ H (Negative) Urine Glucose (UA) 4+ H (Negative) Urine Ketones 2+ H (Negative) Ur Squamous Epith Cells 6 H (0-4) /hpf Urine Bacteria Rare H (None) /hpf Urine Mucus Few H (None) /hpf 05/20/20 05/20/20 05/20/20 Range/Units 11:47 12:52 12:52 WBC 16.9 H (3.8-10.6) k/uL Plt Count (150-450) k/uL Neutrophils # 13.7 H (1.3-7.7) k/uL ESR (0-20) mm/hr Sodium (137-145) mmol/L BUN (7-17) mg/dL Glucose (74-99) mg/dL POC Glucose (mg/dL) 226 H (75-99) mg/dL C-Reactive Protein 26.5 H (<10.0) mg/L Urine Appearance (Clear) Urine Protein (Negative) Urine Glucose (UA) (Negative) Urine Ketones (Negative) Ur Squamous Epith Cells (0-4) /hpf Urine Bacteria (None) /hpf Urine Mucus (None) /hpf Assessment and Plan Assessment: * Recurrent transient ischemic attacks. Most likely cardioembolic from atrial fibrillation. * Newly diagnosed atrial fibrillation. * Uncontrolled hypertension * Uncontrolled diabetes. * Noncompliant with medication. * Hyperlipidemia Plan: * Patient's telemetry monitoring revealed atrial fibrillation. Patient has been started on Eliquis 5 mg twice a day to prevent recurrent strokes or TIAs related to atrial fibrillation. * We'll hold off on antiplatelet agent (ASA), because of hemorrhagic risk related to uncontrolled hypertension. * Aggressive control of blood pressure. Patient's blood pressure is still running 197/79 (most recent reading) * CTA of head and neck were reported as normal with no evidence of occlusion, stenosis, or aneurysm. * 2-D echo revealed normal left ventricular size, moderate concentric LVH, EF is 60-65%, left atrium is mildly dilated. Mild mitral regurgitation. * Patient's hemoglobin A1c 13.2 consistent with undiagnosed, uncontrolled diabetes for some time. Patient started on insulin. * Fasting a.m. lipid panel revealed cholesterol 198, LDL cannot be checked as triglycerides are very elevated 402, HDL 39. Patient started on Lipitor. May have to treat hypertriglyceridemia if continues to be highly elevated in the future.
[2020-05-20] MEDS ORDERED: METOPROLOL TARTRATE 50 MG TAB PO SCH (21:00)
[2020-05-20] MEDS ORDERED: PANTOPRAZOLE 40 MG TABLET PO SCH (21:00)
--- NOTE | 2020-05-21 04:38 | DS ---
DISCHARGE SUMMARY DATE OF SERVICE: 05/20/2020 FINAL DIAGNOSES: 1. Accelerated hypertension and hypertensive urgency. 2. Acute transient ischemic attack and slurring of speech and left hand numbness caused by right hemispheric lesion possibly. 3. Increased WBC. 4. Acute gastritis. 5. Diabetes mellitus type 2 uncontrolled with hyperglycemia, new onset, hemoglobin A1c 13.2. 6. Hyponatremia. 7. Increased alkaline phosphatase. 8. History of hypertension. 9. History of cholecystectomy. 10.Obesity with body mass index of 38.9. 11.FULL CODE. DISCHARGE DISPOSITION: The patient will be discharged in stable condition with guarded prognosis. Discharge cleared by Dr. Vargas. HISTORY OF PRESENT ILLNESS: This 45-year-old woman with a past medical history of multiple medical problems admitted with multiple medical issues including features of TIA, accelerated hypertension. Patient also had elevated WBC. The patient was treated symptomatically. Multiple neurological evaluations. Brain MRI was negative. Neurovascular workup was negative and Cardiology also saw the patient, recommended outpatient followup. On exam, vitals are stable. CARDIOVASCULAR: S1, S2 muffled. ABDOMEN: Soft. NERVOUS SYSTEM: No focal deficits. The patient's WBC was 16.9 and CRP was 26.5. Recommended outpatient followup. COVID-19 is pending. Triglycerides 402. DISCHARGE ADVICE: 1. Diet is cardiac. 2. Activity limited until followup. 3. Follow up with primary physician Erika Kahn in 2-3 days. 4. Follow up with Cardiology, Infectious Disease as mentioned earlier. Medications are: 1. Ecotrin 81 mg daily. 2. Eliquis 5 mg p.o. b.i.d. 3. Glucophage 1000 mg b.i.d. 4. Levemir 15 units subcu b.i.d. 5. Accu-Cheks a.c. and at bedtime and results to primary physician. 6. Lipitor 10 mg daily. 7. Norvasc 10 mg daily. 8. Tenormin 50 mg daily. 9. Zestril 10 mg b.i.d. Hold blood pressure medication if the systolic blood pressure less than 100. Once again, the patient will be discharged in stable condition with guarded prognosis. MMODL / IJN: [id number] /
[2020-05-22 11:39] LABS: ANA Pattern Homogeneous
--- NOTE | 2020-05-23 19:36 | P.CONS ---
History of Present Illness - Reason for Consult Consult date: 05/20/20 Leukocytosis Requesting physician: Jenni Roth - Chief Complaint Elevated blood pressure x one day - History of Present Illness Patient is a 45-year-old female presenting to the ER at [facility] on 05/17/2020 for evaluation of elevated blood pressure that was noticed by her primary care physician and the patient has been directed to go to the ER and she was noticed to have a blood pressure over 200 systolic patient also mentioned + the patient did have an episode that she would not speak and unable to find words and has some left arm numbness she subsequently has been admitted to the hospital with workup for possible CVA, patient did not have any fever during this admission she did have chest x-ray was negative for acute infiltrate CT of the brain was negative for any bleed patient also have a MRI of the brain which shows tiny areas of abnormal signal seen in the upper anterior frontal cortex of the frontal lobes bilaterally felt more likely artifact, patient did have elevated white count 13.3 on admission that subsequently normalized the next day to 10.3 however since then patient was noticed to have a white count is trending up it was 13.2 yesterday and is up to 17.6 today, patient did have a UA that was negative infection and was considered today with concern for elevated white count, patient to determine whether the denies having any fever or any chills, denies having any headache or URI symptoms, no chest pain shortness of breath or cough no nausea no vomiting and abdominal pain no diarrhea overall feeling better since admission to the hospital Review of Systems Positive point has been mentioned in the HPI rest of the systems are negative Past Medical History Past Medical History: Hypertension History of Any Multi-Drug Resistant Organisms: None Reported Past Surgical History: Section, Cholecystectomy Past Psychological History: No Psychological Hx Reported Smoking Status: Never smoker Past Alcohol Use History: None Reported Past Drug Use History: None Reported - Past Family History Mother Family Medical History: Chest Pain / Angina Father Family Medical History: Cancer Additional Family Medical History / Comment(s): lymphoma, leukemia, multiple myeloma Medications and Allergies Home Medications Medication Instructions Recorded Confirmed Type Aspirin EC [Ecotrin Low Dose] 81 mg PO DAILY #30 tablet. 05/19/20 Rx Insulin Detemir (Levemir) [Levemir] 15 unit SQ BID #1 syr 10/18/20 Rx amLODIPine [Norvasc] 10 mg PO DAILY #30 tab 05/19/20 Rx atenoloL [Tenormin] 50 mg PO DAILY #30 tab 05/19/20 Rx lisinopriL [Zestril] 10 mg PO BID #60 tab 05/19/20 Rx metFORMIN HCL [Glucophage] 1,000 mg PO BID-W/MEALS #60 tab 05/19/20 Rx Apixaban [Eliquis] 5 mg PO BID #180 tab 05/20/20 Rx Atorvastatin Calcium [Lipitor] 10 mg PO DAILY #30 tab 05/20/20 Rx Allergies Allergy/AdvReac Type Severity Reaction Status Date / Time No Known Allergies Allergy Verified 05/17/20 16:25 Physical Exam Vitals: Vital Signs Temp Pulse Resp BP Pulse Ox 05/20/20 08:10 98.3 F 96 16 145/88 98 05/20/20 04:00 98.3 F 91 18 145/73 97 05/20/20 00:00 97.8 F 67 18 120/70 97 05/19/20 20:00 98.4 F 68 18 132/60 97 05/19/20 16:00 98.3 F 72 18 137/64 99 Intake and Output 05/19/20 05/20/20 05/20/20 22:59 06:59 14:59 Intake Total 0 Output Total 400 Balance -400 0 Intake: Oral 0 Output: Emesis 400 Other: Voiding Method Toilet Toilet Toilet # Voids 3 Weight 108.1 kg GENERAL DESCRIPTION: Middle-aged female lying in bed, no distress. No tachypnea or accessory muscle of respiration use. HEENT: Shows Pallor , no scleral icterus. Oral mucous membrane is dry. No pharyngeal erythema or thrush NECK: Trachea central, no thyromegaly. LUNGS: Unlabored breathing. Clear to auscultation anteriorly. No wheeze or crackle. HEART: S1, S2, regular rate and rhythm. No loud murmur ABDOMEN: Soft, no tenderness , guarding or rigidity, no organomegaly EXTREMITIES: No edema of feet. SKIN: No rash, no masses palpable. NEUROLOGICAL: The patient is awake, alert, oriented x3, mood and affect normal. Results CBC & Chem 7: 05/20/20 12:52 05/20/20 07:35 Labs: Abnormal Lab Results - Last 24 Hours (Table) 05/19/20 05/19/20 05/20/20 Range/Units 16:51 20:55 04:38 WBC (3.8-10.6) k/uL Plt Count (150-450) k/uL Neutrophils # (1.3-7.7) k/uL Sodium (137-145) mmol/L BUN (7-17) mg/dL Glucose (74-99) mg/dL POC Glucose (mg/dL) 183 H 169 H 203 H (75-99) mg/dL C-Reactive Protein (<10.0) mg/L Urine Appearance (Clear) Urine Protein (Negative) Urine Glucose (UA) (Negative) Urine Ketones (Negative) Ur Squamous Epith Cells (0-4) /hpf Urine Bacteria (None) /hpf Urine Mucus (None) /hpf 05/20/20 05/20/20 05/20/20 Range/Units 06:25 07:35 07:35 WBC 17.6 H (3.8-10.6) k/uL Plt Count 475 H (150-450) k/uL Neutrophils # 14.8 H (1.3-7.7) k/uL Sodium 134 L (137-145) mmol/L BUN 18 H (7-17) mg/dL Glucose 282 H (74-99) mg/dL POC Glucose (mg/dL) 238 H (75-99) mg/dL C-Reactive Protein (<10.0) mg/L Urine Appearance (Clear) Urine Protein (Negative) Urine Glucose (UA) (Negative) Urine Ketones (Negative) Ur Squamous Epith Cells (0-4) /hpf Urine Bacteria (None) /hpf Urine Mucus (None) /hpf 05/20/20 05/20/20 05/20/20 Range/Units 07:35 11:15 11:47 WBC (3.8-10.6) k/uL Plt Count (150-450) k/uL Neutrophils # (1.3-7.7) k/uL Sodium (137-145) mmol/L BUN (7-17) mg/dL Glucose (74-99) mg/dL POC Glucose (mg/dL) 226 H (75-99) mg/dL C-Reactive Protein 25.4 H (<10.0) mg/L Urine Appearance Cloudy H (Clear) Urine Protein 1+ H (Negative) Urine Glucose (UA) 4+ H (Negative) Urine Ketones 2+ H (Negative) Ur Squamous Epith Cells 6 H (0-4) /hpf Urine Bacteria Rare H (None) /hpf Urine Mucus Few H (None) /hpf Assessment and Plan Assessment: 1- patient with elevated white count in this patient admitted hospital with hypotension in outpatient setting and also mention inability to find was last Wednesday and no other neurological symptoms patient did not have any fever during this admission overall does not look toxic does not have any symptoms or signs for localizing infection and initial workup has been negative with negative UA sex and negative for any acute infiltrate abdominal soft and clin ical examination and no evidence of cellulitis with concern for possible elevated white count possibly reactive or question of a rheumatological/disorder (1) Leukocytosis Status: Acute Code(s): D72.829 - ELEVATED WHITE BLOOD CELL COUNT, UNSPECIFIED SNOMED Code(s): 625807423 Plan: 1- we will obtain a CRP pro calcitonin and a sed rate 2- no antibiotics as no obvious focus of infection 3- advised CBC to be done in the outpatient setting by the primary care physician in one week if the white count has normalized no further workup if still elevated patient is to contact the office and further workup will be ordered at that point Plan of care discussed in detail with the admitting physician who was working on discharge Time with Patient: Greater than 30
== END 2020-05-20 16:32 | disposition home or self-care (01) | DRG 305 ==
LOC: EC 14:08 → 3SCARD 16:12
PROVIDERS: ADMIT Hospitalist; ATTEND Hospitalist
DX: I16.0 Hypertensive urgency (principal); G45.9 Transient cerebral ischemic attack, unspecified; E87.1 Hypo-osmolality and hyponatremia; R47.01 Aphasia; I48.0 Paroxysmal atrial fibrillation; E11.65 Type 2 diabetes mellitus with hyperglycemia; I10 Essential (primary) hypertension; R47.81 Slurred speech; R74.8 Abnormal levels of other serum enzymes; E66.9 Obesity, unspecified; G43.909 Migraine, unspecified, not intractable, without status migrainosus; I34.0 Nonrheumatic mitral (valve) insufficiency; K29.00 Acute gastritis without bleeding; E78.5 Hyperlipidemia, unspecified; F41.9 Anxiety disorder, unspecified; Z68.38 Body mass index [BMI] 38.0-38.9, adult; Z90.49 Acquired absence of other specified parts of digestive tract; Z91.14 Patient's other noncompliance with medication regimen; Z98.891 History of uterine scar from previous surgery; Z20.828 Contact with and (suspected) exposure to other viral communicable diseases; Z80.7 Family history of other malignant neoplasms of lymphoid, hematopoietic and related tissues; Z82.3 Family history of stroke; Z80.6 Family history of leukemia
CPT/HCPCS: 36415; 70450; 70496; 70498; 70551; 71046; 80048; 80053; 80061; 80306; 81001; 82009; 83036; 84484; 85025; 85610; 85652; 85730; 86038; 86039; 86140; 87040; 93005; 93306; 96361; 96374; 99291

== ENCOUNTER → 2020-05-31 | Outpatient (CLI) | payer BC ==
[2020-06-01 01:40] LABS: T4, Free (Free Thyroxine) 1.1 ng/dL (0.80-1.80)
== END | disposition home or self-care (01) ==
LOC: LABWHC1 15:08
PROVIDERS: ATTEND Nurse Practitioner
DX: E11.9 Type 2 diabetes mellitus without complications (principal); I48.0 Paroxysmal atrial fibrillation; I10 Essential (primary) hypertension
CPT/HCPCS: 36415; 84439; 84443

== ENCOUNTER 2020-06-03 17:28 | Emergency (ER) | payer BC ==
[2020-06-03 17:51] VITALS: PULSE 82
[2020-06-03] MEDS ORDERED: SODIUM CHLORIDE 0.9% 500 ML 500 ML IV STA (18:27)
[2020-06-03 18:40] LABS: Basophils # (A) 0.1 k/uL (0-0.2); Basophils % (A) 1 %; Eosinophils # (A) 0.3 k/uL (0-0.7); Eosinophils % (A) 2 %; HCT 39.8 % (34.0-46.0); HGB 13.1 gm/dL (11.4-16.0); Lymphocytes # (A) 3.4 k/uL (1.0-4.8); Lymphocytes % (A) 21 %; MCH 27.2 pg (25.0-35.0); MCHC 32.9 g/dL (31.0-37.0); MCV 82.7 fL (80.0-100.0); Mean Platelet Volume 7.3; Monocytes # (A) 0.6 k/uL (0-1.0); Monocytes % (A) 4 %; Neutrophils # (A) 11.9 k/uL (1.3-7.7); Neutrophils % (A) 72 %; Platelet Count 456 k/uL (150-450); RBC 4.81 m/uL (3.80-5.40); RDW 14.4 % (11.5-15.5); WBC 16.5 k/uL (3.8-10.6)
[2020-06-03 18:47] LABS: Appearance,Urine Cloudy (Clear); Bacteria,Urine Occasional /hpf; Bilirubin,Urine Negative (Negative); Blood,Urine Large (Negative); Color,Urine Red; Glucose,Urine (UA) 2+ (Negative); Ketones,Urine 1+ (Negative); Leukocyte Esterase,Urine Small (Negative); Mucus,Urine Many /hpf; Nitrite,Urine Negative (Negative); PH, Urine 5.5 (5.0-8.0); Protein,Urine 1+ (Negative); RBC,Urine >182 /hpf (0-5); Specific Gravity,Urine 1.019 (1.001-1.035); Squamous Epithelial Cell,Urine 2 /hpf (0-4); Urobilinogen,Urine <2.0 mg/dL (<2.0); WBC,Urine 17 /hpf (0-5)
[2020-06-03 18:50] LABS: ALT 9 U/L (4-34); AST 12 U/L (14-36); African American GFR (CKD) >90 (>60 ml/min/1.73 sqM); Albumin 4.1 g/dL (3.5-5.0); Alkaline Phosphatase 109 U/L (38-126); Anion Gap 9 mmol/L; Blood Urea Nitrogen 15 mg/dL (7-17); Calcium 9.6 mg/dL (8.4-10.2); Carbon Dioxide 27 mmol/L (22-30); Chloride 100 mmol/L (98-107); Glucose 230 mg/dL (74-99); Non-African American GFR(CKD) >90 (>60 ml/min/1.73 sqM); Potassium 4.3 mmol/L (3.5-5.1); Sodium 136 mmol/L (137-145); Total Bilirubin 1.3 mg/dL (0.2-1.3); Total Protein 7.8 g/dL (6.3-8.2)
--- NOTE | 2020-06-03 19:26 | ED ---
Abdominal Pain HPI - General Chief Complaint: Abdominal Pain Stated Complaint: Abd Pain Time Seen by Provider: 06/03/20 18:14 Source: patient Mode of arrival: ambulatory Limitations: no limitations - History of Present Illness Initial Comments: Patient is a 45-year-old female, recently diagnosed with A. fib, hypertension, diabetes, presenting to the emergency Department with complaints of abdominal discomfort as well as hematuria 3 days. Patient states she was recently started on many new medication secondary to these recent diagnosis including me tformin, Eliquis, insulin, norvasc, lisinopril, lipitor. Patient states she went to her doctor on Wednesday who added the Lipitor. Patient states over the past few days she has been noticing hematuria, abdominal discomfort. She has been also having diarrhea for the last 2 weeks. Her metformin is currently 1000 mg twice daily. She denies any fever, chills, vomiting. She states her abdominal discomfort is cramping, diffuse in nature, no specific area pain. She denies any chest pain, shortness of breath. She denies any dysuria does admit to frequency. She has no further complaints. Her vitals are stable upon arrival. - Related Data Previous Rx's Medication Instructions Recorded Aspirin EC [Ecotrin Low Dose] 81 mg PO DAILY #30 tablet. 05/19/20 Insulin Detemir (Levemir) [Levemir] 15 unit SQ BID #1 syr 05/19/20 amLODIPine [Norvasc] 10 mg PO DAILY #30 tab 05/19/20 atenoloL [Tenormin] 50 mg PO DAILY #30 tab 05/19/20 lisinopriL [Zestril] 10 mg PO BID #60 tab 05/19/20 metFORMIN HCL [Glucophage] 1,000 mg PO BID-W/MEALS #60 tab 05/19/20 Apixaban [Eliquis] 5 mg PO BID #180 tab 05/20/20 Atorvastatin Calcium [Lipitor] 10 mg PO DAILY #30 tab 05/20/20 Cephalexin [Keflex] 500 mg PO BID 5 Days #10 cap 06/03/20 Allergies Allergy/AdvReac Type Severity Reaction Status Date / Time No Known Allergies Allergy Verified 06/03/20 17:51 Review of Systems ROS Statement: Those systems with pertinent positive or pertinent negative responses have been documented in the HPI. ROS Other: All systems not noted in ROS Statement are negative. Past Medical History Past Medical History: Atrial Fibrillation, Diabetes Mellitus, Hypertension History of Any Multi-Drug Resistant Organisms: None Reported Past Surgical History: Section, Cholecystectomy Past Psychological History: No Psychological Hx Reported Smoking Status: Never smoker Past Alcohol Use History: None Reported Past Drug Use History: None Reported - Past Family History Mother Family Medical History: Chest Pain / Angina Father Family Medical History: Cancer Additional Family Medical History / Comment(s): lymphoma, leukemia, multiple myeloma General Exam - General Exam Comments Initial Comments: GENERAL: Patient is well-developed and well-nourished. Patient is nontoxic and in no acute distress. HEAD: Atraumatic, normocephalic. EYES: Pupils equal round and reactive to light, extraocular movements intact, sclera anicteric, conjunctiva are normal. Eyelids were unremarkable. ENT: TMs normal, nares patent, oropharynx clear without exudates. Moist mucous membranes. NECK: Normal range of motion, supple without lymphadenopathy or JVD. LUNGS: Unlabored respirations. Breath sounds clear to auscultation bilaterally and equal. No wheezes rales or rhonchi. HEART: Regular rate and rhythm without murmurs, rubs or gallops. ABDOMEN: Mild lower abdomen soreness with palpation, no specific area pain. Soft, normoactive bowel sounds. No guarding, no rebound. No masses appreciated. : Deferred MUSCULOSKELETAL: Normal extremities with adequate strength and normal range of motion, no pitting or edema. No clubbing or cyanosis. NEUROLOGICAL: Patient is alert and oriented x 3. Motor and sensory are also intact. Normal speech, normal gait. PSYCH: Normal mood, normal affect. SKIN: Warm, Dry, normal turgor, no rashes or lesions noted. Limitations: no limitations Course Vital Signs 06/03/20 17:48 Temperature 98.1 F Pulse Rate 82 Respiratory 20 Rate Blood Pressure 161/96 O2 Sat by Pulse 98 Oximetry Medical Decision Making - Medical Decision Making Patient is a 45-year-old female here with diffuse lower abdominal discomfort, diarrhea, hematuria for the past 3 days. Is recently started on any new medications last 2 weeks secondary to recent diagnosis of A. fib, diabetes, hypertension. Her vital signs are stable today. Labs show a leukocytosis however this is chronic in nature, she is having an appointment to see a specialist. Her kidney function is normal, glucose is elevated at 2:30, lactic acid is 1.4. Her urine does have some bacteria, blood, 2+ glucose. Urine cultures pending. I discussed these findings with the patient. I will start her on Keflex for possible UTI. She also needs to follow up with her PCP regarding the diarrhea, possibly decreased metformin. She is in agreement with this plan of care. She is stable for discharge. Measure discussed with the patient she verbalized understanding. Case discussed with Dr. logan. - Lab Data Result diagrams: 06/03/20 18:30 06/03/20 18:30 Lab Results 06/03/20 06/03/20 06/03/20 Range/Units 18:30 18:30 18:30 WBC 16.5 H (3.8-10.6) k/uL RBC 4.81 (3.80-5.40) m/uL Hgb 13.1 (11.4-16.0) gm/dL Hct 39.8 (34.0-46.0) % MCV 82.7 (80.0-100.0) fL MCH 27.2 (25.0-35.0) pg MCHC 32.9 (31.0-37.0) g/dL RDW 14.4 (11.5-15.5) % Plt Count 456 H (150-450) k/uL Neutrophils % 72 % Lymphocytes % 21 % Monocytes % 4 % Eosinophils % 2 % Basophils % 1 % Neutrophils # 11.9 H (1.3-7.7) k/uL Lymphocytes # 3.4 (1.0-4.8) k/uL Monocytes # 0.6 (0-1.0) k/uL Eosinophils # 0.3 (0-0.7) k/uL Basophils # 0.1 (0-0.2) k/uL Sodium 136 L (137-145) mmol/L Potassium 4.3 (3.5-5.1) mmol/L Chloride 100 (98-107) mmol/L Carbon Dioxide 27 (22-30) mmol/L Anion Gap 9 mmol/L BUN 15 (7-17) mg/dL Creatinine 0.71 (0.52-1.04) mg/dL Est GFR (CKD-EPI)AfAm >90 (>60 ml/min/1.73 sqM) Est GFR (CKD-EPI)NonAf >90 (>60 ml/min/1.73 sqM) Glucose 230 H (74-99) mg/dL Plasma Lactic Acid Marcus (0.7-2.0) mmol/L Calcium 9.6 (8.4-10.2) mg/dL Total Bilirubin 1.3 (0.2-1.3) mg/dL AST 12 L (14-36) U/L ALT 9 (4-34) U/L Alkaline Phosphatase 109 (38-126) U/L Total Protein 7.8 (6.3-8.2) g/dL Albumin 4.1 (3.5-5.0) g/dL Urine Color Red Urine Appearance Cloudy H (Clear) Urine pH 5.5 (5.0-8.0) Ur Specific [place] 1.019 (1.001-1.035) Urine Protein 1+ H (Negative) Urine Glucose (UA) 2+ H (Negative) Urine Ketones 1+ H (Negative) Urine Blood Large H (Negative) Urine Nitrite Negative (Negative) Urine Bilirubin Negative (Negative) Urine Urobilinogen <2.0 (<2.0) mg/dL Ur Leukocyte Esterase Small H (Negative) Urine RBC >182 H (0-5) /hpf Urine WBC 17 H (0-5) /hpf Ur Squamous Epith Cells 2 (0-4) /hpf Urine Bacteria Occasional H (None) /hpf Urine Mucus Many H (None) /hpf 06/03/20 Range/Units 18:30 WBC (3.8-10.6) k/uL RBC (3.80-5.40) m/uL Hgb (11.4-16.0) gm/dL Hct (34.0-46.0) % MCV (80.0-100.0) fL MCH (25.0-35.0) pg MCHC (31.0-37.0) g/dL RDW (11.5-15.5) % Plt Count (150-450) k/uL Neutrophils % % Lymphocytes % % Monocytes % % Eosinophils % % Basophils % % Neutrophils # (1.3-7.7) k/uL Lymphocytes # (1.0-4.8) k/uL Monocytes # (0-1.0) k/uL Eosinophils # (0-0.7) k/uL Basophils # (0-0.2) k/uL Sodium (137-145) mmol/L Potassium (3.5-5.1) mmol/L Chloride (98-107) mmol/L Carbon Dioxide (22-30) mmol/L Anion Gap mmol/L BUN (7-17) mg/dL Creatinine (0.52-1.04) mg/dL Est GFR (CKD-EPI)AfAm (>60 ml/min/1.73 sqM) Est GFR (CKD-EPI)NonAf (>60 ml/min/1.73 sqM) Glucose (74-99) mg/dL Plasma Lactic Acid Marcus 1.4 (0.7-2.0) mmol/L Calcium (8.4-10.2) mg/dL Total Bilirubin (0.2-1.3) mg/dL AST (14-36) U/L ALT (4-34) U/L Alkaline Phosphatase (38-126) U/L Total Protein (6.3-8.2) g/dL Albumin (3.5-5.0) g/dL Urine Color Urine Appearance (Clear) Urine pH (5.0-8.0) Ur Specific [place] (1.001-1.035) Urine Protein (Negative) Urine Glucose (UA) (Negative) Urine Ketones (Negative) Urine Blood (Negative) Urine Nitrite (Negative) Urine Bilirubin (Negative) Urine Urobilinogen (<2.0) mg/dL Ur Leukocyte Esterase (Negative) Urine RBC (0-5) /hpf Urine WBC (0-5) /hpf Ur Squamous Epith Cells (0-4) /hpf Urine Bacteria (None) /hpf Urine Mucus (None) /hpf Disposition Clinical Impression: Diarrhea, Abdominal pain, UTI (urinary tract infection) Disposition: HOME SELF-CARE Condition: Stable Instructions (If sedation given, give patient instructions): Urinary Tract Infection in Women (ED) Additional Instructions: Please return to the Emergency Department if symptoms worsen or any other concerns. Take antibiotic as prescribed. Follow up with PCP as discussed. Prescriptions: Cephalexin [Keflex] 500 mg PO BID 5 Days #10 cap Is patient prescribed a controlled substance at d/c from ED?: No Referrals: Jayy Henry MD [Primary Care Provider] - 1-2 days
[2020-06-03 19:36] VITALS: BP 146/82; RESP 16; TEMP 98.4
== END 2020-06-03 19:40 | disposition home or self-care (01) ==
LOC: EC 17:28
DX: N39.0 Urinary tract infection, site not specified (principal); R19.7 Diarrhea, unspecified
CPT/HCPCS: 36415; 80053; 81001; 83605; 85025; 87086; 96360; 99284

== ENCOUNTER → 2020-09-16 | Outpatient (CLI) | payer BC ==
--- NOTE | 2020-09-17 12:26 | CT ---
EXAMINATION TYPE: CT urogram wo/w con DATE OF EXAM: 09/16/2020 COMPARISON: None INDICATION: Hematuria DLP: 4359 mGycm, Automated exposure control for dose reduction was used. CONTRAST: 100 ml mL of Isovue 370. Study performed TECHNIQUE: Axial images were obtained from above the diaphragm to the pubic rami in the axial plane a t 5 mm thick sections. Reconstructed images are reviewed on the computer in the coronal plane. Three -D reconstructed images in the renal collecting system are performed by the technologist on a Bubbli computer. FINDINGS: Limited CT sections are obtained the lung bases. The lung bases are clear. CT ABDOMEN: Liver: Normal Spleen: Normal Pancreas: Normal Adrenal glands: The adrenal glands are normal. Gallbladder: Surgically absent Kidneys: No masses are evident. No hydronephrosis is present. No cysts are present. No renal stone s were evident. On early and delayed imaging kidneys remain unremarkable. Renal calyces infundibula and renal pelves appear normal. Ureters have a normal caliber course and co ntour to the urinary bladder. Urinary bladder with contrast appears normal. Aorta: Vascular calcification is within the aorta. Inferior vena cava: Normal. CT PELVIS: Loops of bowel within the abdomen and pelvis are normal. Studies without oral contrast limiting b owel evaluation. Appendix: Not identified. No suspicious dilated tubular structures or inflammatory changes are eviden t. Urinary bladder: Normal. Urine contrast level is evident. Genitourinary structures: Uterus is normal. Bilateral ovarian follicles are present. Osseous structures: No suspicious lytic or sclerotic lesions. IMPRESSIONS: 1. No suspicious changes CT urogram to account for hematuria
== END | disposition home or self-care (01) ==
LOC: RADCTMAIN 10:16
PROVIDERS: ATTEND Urology
DX: R31.0 Gross hematuria (principal)
CPT/HCPCS: 82565; 84520; 74178; 36415; 74400; Q9967

== ENCOUNTER → 2020-09-25 | Outpatient (CLI) | payer BC ==
[2020-09-25 13:35] LABS: Anisocytosis Slight; Basophils % (A) 0 %; Eosinophils # (A) 0.1 k/uL (0-0.7); Eosinophils % (A) 1 %; HCT 27.7 % (34.0-46.0); HGB 9.2 gm/dL (11.4-16.0); Lymphocytes # (A) 2.8 k/uL (1.0-4.8); Lymphocytes % (A) 19 %; MCH 25.8 pg (25.0-35.0); MCHC 33.3 g/dL (31.0-37.0); MCV 77.6 fL (80.0-100.0); Mean Platelet Volume 7.2; Microcytosis Slight; Monocytes # (A) 0.7 k/uL (0-1.0); Monocytes % (A) 5 %; Neutrophils # (A) 10.8 k/uL (1.3-7.7); Neutrophils % (A) 75 %; Platelet Count 494 k/uL (150-450); RBC 3.57 m/uL (3.80-5.40); RDW 17.6 % (11.5-15.5); WBC 14.5 k/uL (3.8-10.6)
== END | disposition home or self-care (01) ==
LOC: LABPAT 12:53
PROVIDERS: ATTEND Obstetrics & Gynecology Obstetrics
DX: Z01.818 Encounter for other preprocedural examination (principal); D64.9 Anemia, unspecified; N92.0 Excessive and frequent menstruation with regular cycle
CPT/HCPCS: 85025

== ENCOUNTER 2020-10-01 07:04 | Day surgery (SDC) | payer BC ==
[2020-09-26 12:17] VITALS: BMI 33.4
[~2020-10-01 07:04] MED LIST: DEXAMETHASONE SOD PHOSPHATE 4 MG/ML 1 ML VIAL IV ONE; LACTATED RINGERS 1,000 ML IV SCH; LIDOCAINE 1% (10MG/ML) FOR IV START INTRADERMA PRN; ONDANSETRON 4 MG/2 ML VIAL IVP ONE; Pre Op ABX Message 1 EACH MISC MISCELLANE ONE
[2020-10-01 07:28] VITALS: RESP 16
[2020-10-01 07:40] LABS: Glucose,Whole Blood 159 mg/dL (75-99)
[2020-10-01] MEDS ORDERED: MIDAZOLAM 2 MG/2 ML VIAL IV ONE (07:44)
[2020-10-01] MEDS ORDERED: KETOROLAC 15 MG/ML 1 ML VIAL ONE (08:38)
[2020-10-01] MEDS ORDERED: MIDAZOLAM 2 MG/2 ML VIAL ONE (08:38)
[2020-10-01] MEDS ORDERED: PROPOFOL 10 MG/ML 20 ML VIAL IV ONE (08:38)
[2020-10-01] MEDS ORDERED: fentaNYL (PF) 50 MCG/ML 2 ML AMP ONE (08:38)
[2020-10-01] MEDS ORDERED: LIDOCAINE 1% INJ 10MG/ML (20 ML MDV) ONE (08:38)
--- NOTE | 2020-10-01 09:10 | P.OP ---
Date of Procedure: 10/01/20 Preoperative Diagnosis: menorrhagia, anemia Postoperative Diagnosis: Same Procedure(s) Performed: Hysteroscopy, dilation and curettage, endometrial ablation with NovaSure Anesthesia: MAC Surgeon: Ysabel Marcus Estimated Blood Loss (ml): 5 IV fluids (ml): 400 Urine output (ml): 50 Pathology: other (Endometrial curettings) Condition: stable Disposition: PACU Indications for Procedure: Heavy menstrual bleeding with documented anemia Operative Findings: Proliferative endometrium Description of Procedure: Patient was taken back to the operating suite where general anesthesia was obtained without difficulty by the anesthesia department. She was prepped and draped in normal sterile fashion in the dorsal lithotomy position. A red rubber catheter was used to drain the bladder clear yellow urine. A weighted speculum placed in the posterior vaginal vault, the anterior lip of the cervix is visualized and grasped with a single-tooth tenaculum. The cervical canal was then dilated. The uterus was sounded to 9 cm. Serial dilation was performed. The hysteroscope was placed through the cervix and toward the endometrial cavity, proliferative endometrium was noted. A sharp curettage was performed once the hysteroscope was removed and the specimen sent to pathology for analysis. The NovaSure device was then opened and set to the appropriate measurements. Of a length of 570 m, width of 4.1 after cavity assessment was performed and passed a power of 113 for a total of 113 seconds was noted. After the cycle was complete the NovaSure was removed without difficulty. The single-tooth tenaculum was taken off of the anterior lip of the cervix and hemostasis was appreciated. All counts were correct 2 at the end of the procedure patient tolerated procedure well and was taken to the recovery room awake in stable condition.
[2020-10-01 09:19] VITALS: TEMP 97.1
[2020-10-01 09:53] LABS: Glucose,Whole Blood 175 mg/dL (75-99)
[2020-10-01 10:00] VITALS: PULSE 83
[2020-10-01 10:21] VITALS: BP 119/69
== END 2020-10-01 10:36 | disposition home or self-care (01) ==
LOC: OR 07:04
PROVIDERS: ATTEND Obstetrics & Gynecology Obstetrics
DX: N92.0 Excessive and frequent menstruation with regular cycle (principal); D64.9 Anemia, unspecified; I48.91 Unspecified atrial fibrillation; E11.9 Type 2 diabetes mellitus without complications; E78.00 Pure hypercholesterolemia, unspecified; E78.5 Hyperlipidemia, unspecified; K21.9 Gastro-esophageal reflux disease without esophagitis; I10 Essential (primary) hypertension; Z86.73 Personal history of transient ischemic attack (TIA), and cerebral infarction without residual deficits; Z98.891 History of uterine scar from previous surgery; Z90.49 Acquired absence of other specified parts of digestive tract; Z82.49 Family history of ischemic heart disease and other diseases of the circulatory system; Z80.1 Family history of malignant neoplasm of trachea, bronchus and lung; Z80.7 Family history of other malignant neoplasms of lymphoid, hematopoietic and related tissues; Z79.01 Long term (current) use of anticoagulants; Z79.82 Long term (current) use of aspirin; Z79.4 Long term (current) use of insulin; Z79.899 Other long term (current) drug therapy
CPT/HCPCS: 81025; 88305; 58563; J2250; J1100; J2405; J2001; J3010; J1885; J2704

== ENCOUNTER → 2020-11-28 | Outpatient (CLI) | payer BC ==
[2020-11-28 12:20] VITALS: BP 123/86; PULSE 89; RESP 18; TEMP 97.8
--- NOTE | 2020-11-28 12:46 | P.GSHP ---
History of Present Illness H&P Date: 11/28/20 Chief Complaint: Radiographic abnormality right breast Dayanara is a 45-year-old white female seen in consultation for Erika New regarding a radiographic abnormality in the right breast. She had a bilateral screening mammogram performed on 2920. She was noted to have a focal asymmetry 2.3 cm in the upper quadrant of the right breast at middle depth. There was a question of a second smaller 1.2 cm area of focal asymmetry adjacent. Further evaluation was recommended. She subsequently underwent a right breast ultrasound on . This revealed a 0.8 x 0.9 cm area as well as a second area measuring 1 x 0 1.4 cm which was lobular. Ultrasound-guided c ore biopsy was recommended. Ultrasound core biopsy was performed on . Pathology revealed fibrocystic changes with ductal dilatation, periductal chronic inflammation and fibrotic changes. Mammogram following ultrasound core biopsy revealed that the area which had been sampled was not in the same spot as the region seen on the mammogram. Therefore stereotactic core biopsy of the lesion in the right breast seen on mammogram was recommended. These films are reviewed with Dr. Cowan and he concurs although he sees only one area of concern. This was the patient's first mammogram. She does not feel any lumps masses or nodules of concern in her breast. She is not complaining of any nipple discharge. She has not had any recent trauma or infection in the breast. She has never had any surgery in the breast. Caffeine: none nicotine: none chocolate: weekly Family history: father: lymphoma, multiple myloma, leukemia Hormonal History: menarche: 11 , breast fed: yes, age at first : 22 periods irregular, ablation last month (bleeding on eliquis) BCP: none Medical history: 1. Patient had a mini stroke in May 2020 2. Diabetic 3. Hypertension 4. ? afib Surgical history: 1. Uterine ablation 2. Cholecystectomy Social History: smoke: none alcohol: none drugs: none - Constitutional Constitutional: Denies chills, Denies fever - EENT Eyes: denies blurred vision, denies pain Ears: deny: decreased hearing, tinnitus Ears, nose, mouth and throat: Denies headache, Denies sore throat - Breasts Breasts: bilateral: as per HPI - Cardiovascular Comment: HTN Cardiovascular: Denies chest pain, Denies shortness of breath - Respiratory Respiratory: Denies cough, Denies 7 - Gastrointestinal Gastrointestinal: Reports diarrhea, Denies abdominal pain, Denies nausea, Denies vomiting - Genitourinary (Female) Genitourinary: Denies dysuria, Denies hematuria - Menstruation Menstruation: Reports as per HPI - Musculoskeletal Musculoskeletal: Denies myalgias - Integumentary Integumentary: Denies pruritus, Denies rash - Neurological Comment: TIA Neurological: Denies numbness, Denies weakness - Psychiatric Psychiatric: Denies anxiety, Denies depression - Endocrine Endocrine: Reports weight change, Denies fatigue - Hematologic/Lymphatic Comment: baby aspirin - Allergic/Immunologic Allergic/Immunologic: Reports as per HPI Past Medical History Past Medical History: Atrial Fibrillation, CVA/TIA, Diabetes Mellitus, Hypertension Additional Past Medical History / Comment(s): TIA (MAY 2020), HEAVY MENSTRUAL BLEEDING, RECENT IRON TRANSFUSIONS, BREAST BX TODAY (09/26/20) AT [facility]. History of Any Multi-Drug Resistant Organisms: None Reported Past Surgical History: Section, Cholecystectomy Additional Past Surgical History / Comment(s): BREAST BX (09/26/20) Past Anesthesia/Blood Transfusion Reactions: No Reported Reaction Past Psychological History: No Psychological Hx Reported Smoking Status: Never smoker Past Alcohol Use History: None Reported Past Drug Use History: None Reported - Past Family History Mother Family Medical History: Chest Pain / Angina Father Family Medical History: Cancer Additional Family Medical History / Comment(s): lymphoma, leukemia, multiple myeloma Medications and Allergies Home Medications Medication Instructions Recorded Confirmed Type Aspirin EC [Ecotrin Low Dose] 81 mg PO DAILY #30 tablet. 05/19/20 09/26/20 Rx amLODIPine [Norvasc] 10 mg PO DAILY #30 tab 05/19/20 09/26/20 Rx Apixaban [Eliquis] 5 mg PO BID #180 tab 05/20/20 09/26/20 Rx Atorvastatin Calcium [Lipitor] 10 mg PO DAILY #30 tab 05/20/20 09/26/20 Rx Ferrous Sulfate [Feosol] 325 mg PO BID 09/06/20 09/26/20 History Metoprolol Tartrate [Lopressor] 50 mg PO BID 09/06/20 09/26/20 History hydrALAZINE HCL [Apresoline] 50 mg PO TID 09/06/20 09/26/20 History Insulin Degludec [Tresiba 40 units SQ HS 09/26/20 09/26/20 History Flextouch U-100] Losartan Potassium 100 mg PO DAILY 09/26/20 09/26/20 History Semaglutide [Ozempic] 0.5 mg SQ TU 09/26/20 09/26/20 History amLODIPine [Norvasc] 5 mg PO 1700 09/26/20 09/26/20 History metFORMIN HCL [metFORMIN HCL ER] 500 mg PO AC-BID 09/26/20 09/26/20 History Allergies Allergy/AdvReac Type Severity Reaction Status Date / Time No Known Allergies Allergy Verified 11/28/20 12:16 Surgical - Exam Vital Signs Temp Pulse Resp BP Pulse Ox 97.8 F 89 18 123/86 99 11/28/20 12:18 11/28/20 12:18 11/28/20 12:18 11/28/20 12:18 11/28/20 12:18 BMI 32.6 - General well developed, well nourished, no distress - Eyes normal ocular movement - ENT normal pinna, normal nares - Neck no masses, trachea midline - Respiratory normal respiratory effort, clear to auscultation - Cardiovascular Rhythm: regular Heart Sounds: normal: S1, S2 - Abdomen Abdomen: soft, non tender, no guarding, no rigid, no rebound - Integumentary normal turgor - Neurologic no disoriented, no combative - Musculoskeletal normal gait - Psychiatric oriented to time, oriented to person, oriented to place, speech is normal, memory intact breast exam: BRA: 40DD inspection: grade 3 ptosis bilateral, bilateral axillary breast tissue palpation: right breast: Multi-positional exam fibrocystic breast changes, no dominant masses or nodules of concern Right axilla: No adenopathy of concern Left breast: Multi-positional examination, fibrocystic breast changes no dominant masses or nodules of concern Left axilla: No adenopathy of concern Results Mammogram and ultrasound reviewed with Dr. Francisco Assessment and Plan Assessment: Impression: 1. Patient had a mini stroke in May 2020 2. Diabetic 3. Hypertension 4. ? afib 5. Discordant ultrasound core biopsy of the right breast questionable area of concern on mammogram Plan: 1. Attempt at stereotactic core biopsy right breast lesion of concern in the right breast, if this is not the produced would repeat mammogram in 4-6 months 2. Risk and benefits of the procedure discussed with the patient Alternatives such as watchful waiting or open resection in the operating room are discussed but not recommended. Patient understands will be scheduled for right breast stereotactic core biopsy in the near future. CC: Erika Kahn
== END ==
LOC: WWCWWP 11:55
PROVIDERS: ATTEND Surgery
DX: B36.8 Other specified superficial mycoses (principal); N60.11 Diffuse cystic mastopathy of right breast; I10 Essential (primary) hypertension; E11.9 Type 2 diabetes mellitus without complications; Z86.73 Personal history of transient ischemic attack (TIA), and cerebral infarction without residual deficits; Z79.82 Long term (current) use of aspirin; Z79.4 Long term (current) use of insulin

== ENCOUNTER → 2020-12-12 | Day surgery (SDC) | payer BC ==
--- NOTE | 2020-12-12 09:00 | P.PCN ---
Date of Procedure: 12/12/20 Preoperative Diagnosis: Breast mammographic lesion of concern upper outer quadrant Postoperative Diagnosis: Same/prior ultrasound-guided core biopsy did not reveal clip in the correct location therefore mammographic stereotactic core biopsy was recommended Procedure(s) Performed: Stereotactic core biopsy right breast lesion of concern Anesthesia: local Surgeon: Chasity Pack Estimated Blood Loss (ml): 0.05 Pathology: other (Breast tissue) Condition: stable Disposition: same day Indications for Procedure: Radiographic abnormality right breast, attempt at ultrasound-guided core biopsy did not reveal the clip to be in the correct location therefore stereo core biopsy was recommended Operative Findings: Fibrofatty breast tissue Description of Procedure: The patient was taken to the stereotactic core biopsy suite. She was positioned prone on the lower abdomen table. The area of concern in the right breast was targeted with the market maker film. CBC from above approach was utilized. On the initial market maker film the lesion was identified in the stereo pair was obtained. However on the stereo. There were vessels close to the area of concern and therefore a lateral approach was utilized. Utilizing a lateral approach the lesion could not be well seen. Another attempt at a CC from above approach was therefore performed. On this the breast was rolled and the lesion was able to be identified without vessels entering the area of concern. Following the market maker film stereo pair was obtained. The lesion was targeted. The breast was prepped using Betadine. 20 mL of 1% lidocaine were used to anesthetize the area of concern. A 9-gauge vacuum-assisted core rotating biopsy needle was driven to the correct coordinates. Was fired. Post fire film was obtained. The knee was noted to be in the correct location. 12 specimens were obtained. No radiograph of the specimen was performed. A secure maryse top hat lining paster was left. The maryse appeared to be in the correct location. The specimen was sent to pathology. The patient tolerated procedure in stable condition she will follow-up Dr. Alford next week.
[2020-12-12 09:01] VITALS: BP 150/91; PULSE 76; RESP 14; TEMP 98.2
--- NOTE | 2020-12-12 10:31 | MM ---
Stereotactic core biopsy right breast. HISTORY: Microcalcifications. The density in question within the right breast were targeted by the undersigned. The examination was performed by the surgeon. Post procedural mammogram demonstrates appropriate deployment of radiopaque clip marker. The patient tolerated the procedure well and left the department in stable condition. Pathology results are pending. IMPRESSION: Successful stereotactic core biopsy right breast with pathology results pending. 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 Recommendation Follow up mammogram of the right breast in 6 months. ELISHA
== END ==
LOC: RADMAMWWP 06:59
PROVIDERS: ATTEND Surgery
DX: D24.1 Benign neoplasm of right breast (principal); N62 Hypertrophy of breast; R92.0 Mammographic microcalcification found on diagnostic imaging of breast
CPT/HCPCS: 88305; 19081; A4648; J2001

== ENCOUNTER → 2020-12-20 | Outpatient (CLI) | payer BC ==
[2020-12-20 12:44] VITALS: BP 127/88; PULSE 79; RESP 18; TEMP 98.1
--- NOTE | 2020-12-20 13:03 | P.PN ---
Subjective Progress Note Date: 12/20/20 Principal diagnosis: Stero biopsy results right breast Dayanara is a 45-year-old white female status post stereotactic core biopsy right breast [place] [id number]. An attempt at core biopsy had been performed previously and there was concern that the area of concern had not been ad equately sampled. On this stereotactic core biopsy was felt that the area of concern has been adequately sampled and pathology is benign. Pathology reveals fibroadenomatoid stromal hyperplasia with focal chronic inflammation, usual ductal hyperplasia, and focally favored luminal microcalcification. The patient tolerated the procedure without difficulty. Objective - Vital Signs Vital signs: Vital Signs Temp 98.1 F 12/20/20 12:41 Pulse 79 12/20/20 12:41 Resp 18 12/20/20 12:41 BP 127/88 12/20/20 12:41 Pulse Ox 99 12/20/20 12:41 Intake & Output 12/19/20 12/20/20 12/20/20 18:59 06:59 18:59 Weight 88.451 kg - Exam BMI 32.4 - Constitutional General appearance: Present: cooperative - EENT Eyes: Present: EOMI ENT: Present: hearing grossly normal - Respiratory Respiratory: bilateral: CTA - Cardiovascular Heart sounds: normal: S1, S2 - Integumentary Integumentary Comment(s): Biopsy site clean and dry, no evidence of infection, no evidence of hematoma Assessment and Plan Assessment: Impression: 1. Patient status post right breast stereotactic core biopsy/pathology benign Gregory: 1. Repeat right breast mammogram in 6 months with physician exam at that time 2. Patient has any questions or concerns would be happy to see her sooner CC: Juan Kahn
== END ==
LOC: WWCWWP 12:31
PROVIDERS: ATTEND Surgery
DX: D24.1 Benign neoplasm of right breast (principal); N62 Hypertrophy of breast

== ENCOUNTER → 2021-01-08 | Outpatient (CLI) | payer BC ==
[2021-01-08 19:18] LABS: HCT 38.7 % (37.2-46.3); HGB 12.5 g/dL (12.0-15.0); MCHC 32.3 g/dL (32.0-37.0); MCV 86.6 fL (80.0-97.0); Mean Platelet Volume 10.7 fL (9.5-12.2); Platelet Count 420 X 10*3/uL (140-440); RBC 4.47 X 10*6/uL (4.10-5.20); RDW 16.6 % (11.5-14.5); WBC 12.15 X 10*3/uL (4.50-10.00)
== END | disposition home or self-care (01) ==
LOC: LABWHC1 12:02
PROVIDERS: ATTEND Internal Medicine Interventional Cardiology
DX: D64.9 Anemia, unspecified (principal)
CPT/HCPCS: 36415; 85027

== ENCOUNTER 2021-05-26 14:47 | Emergency (ER) | payer BC ==
[2021-05-26 16:21] VITALS: PULSE 105; RESP 18; TEMP 98.4
[2021-05-26] MEDS ORDERED: SODIUM CHLORIDE 0.9% 500 ML 500 ML IV STA (17:29)
--- NOTE | 2021-05-26 17:43 | ED ---
Recheck HPI - General Chief Complaint: Recheck/Abnormal Lab/Rx Stated Complaint: Dizziness,Possible Allergic Reaction Time Seen by Provider: 05/26/21 17:04 Source: patient, RN notes reviewed, old records reviewed Mode of arrival: ambulatory Limitations: no limitations - History of Present Illness Initial Comments: Patient is a 46-year-old female with history of A. fib, on a Eliquis, TIA, diabetes, hypertension, presenting to the emergency Department with complaints of lightheadedness and presyncopal episodes been happening all day today. Patient had a follow-up appointment with her gis instructor, Dr. Bay last week, her blood pressure was in the 140s so patient was started on hydrochlorothiazide. She has been on this for about a week and a half. Yesterday and today she has been noticing lightheadedness when she is walking around, feels presyncopal. She is also been having intermittent ALLERGIC reaction since January when she received her covert vaccine. She usually takes Benadryl for acute itchiness, mostly in her scalp as all this and tongue swelling. She did have a little bit of this today, the Benadryl has relieved her symptoms. She tried taking her blood pressure during these episodes this morning by her blood pressure cuff was not reading. Patient denies any chest pain or shortness of breath at this time, no dizziness or lightheadedness. She denies any abdominal pain, nausea or vomiting. Patient has no further complaint s at this time. Upon arrival to the ER, her blood pressure is 107/71, rest of vitals normal. - Related Data Home Medications Medication Instructions Recorded Confirmed Ferrous Sulfate [Feosol] 325 mg PO BID 09/06/20 12/20/20 Metoprolol Tartrate [Lopressor] 50 mg PO BID 09/06/20 12/20/20 hydrALAZINE HCL [Apresoline] 50 mg PO TID 09/06/20 12/20/20 Insulin Degludec [Tresiba 30 units SQ HS 09/26/20 12/20/20 Flextouch U-100] Losartan Potassium 100 mg PO DAILY 09/26/20 12/20/20 Semaglutide [Ozempic] 0.5 mg SQ WEEKLY 09/26/20 12/20/20 Empagliflozin [Jardiance] 25 mg PO DAILY 11/28/20 12/20/20 amLODIPine [Norvasc] 10 mg PO BID 11/28/20 12/20/20 Previous Rx's Medication Instructions Recorded Aspirin EC [Ecotrin Low Dose] 81 mg PO DAILY #30 tablet. 05/19/20 Atorvastatin Calcium [Lipitor] 10 mg PO DAILY #30 tab 05/20/20 Allergies Allergy/AdvReac Type Severity Reaction Status Date / Time No Known Allergies Allergy Verified 05/26/21 16:19 Review of Systems ROS Statement: Those systems with pertinent positive or pertinent negative responses have been documented in the HPI. ROS Other: All systems not noted in ROS Statement are negative. Past Medical History Past Medical History: Atrial Fibrillation, CVA/TIA, Diabetes Mellitus, Hypertension Additional Past Medical History / Comment(s): TIA (MAY 2020), HEAVY MENSTRUAL BLEEDING, RECENT IRON TRANSFUSIONS, BREAST BX TODAY (09/26/20) AT [facility]. History of Any Multi-Drug Resistant Organisms: None Reported Past Surgical History: Section, Cholecystectomy Additional Past Surgical History / Comment(s): BREAST BX (09/26/20) Past Anesthesia/Blood Transfusion Reactions: No Reported Reaction Past Psychological History: No Psychological Hx Reported Smoking Status: Never smoker Past Alcohol Use History: None Reported Past Drug Use History: None Reported - Past Family History Mother Family Medical History: Chest Pain / Angina Father Family Medical History: Cancer Additional Family Medical History / Comment(s): lymphoma, leukemia, multiple myeloma General Exam - General Exam Comments Initial Comments: GENERAL: Patient is well-developed and well-nourished. Patient is nontoxic and in no acute distress. HEAD: Atraumatic, normocephalic. EYES: Pupils equal round and reactive to light, extraocular movements intact, sclera anicteric, conjunctiva are normal. Eyelids were unremarkable. ENT: TMs normal, nares patent, oropharynx clear without exudates. Moist mucous membranes. NECK: Normal range of motion, supple without lymphadenopathy or JVD. LUNGS: Unlabored respirations. Breath sounds clear to auscultation bilaterally and equal. No wheezes rales or rhonchi. HEART: Irregular rate and rhythm without murmurs, rubs or gallops. ABDOMEN: Soft, nontender, normoactive bowel sounds. No guarding, no rebound. No masses appreciated. : Deferred MUSCULOSKELETAL: Normal extremities with adequate strength and normal range of motion, no pitting or edema. No clubbing or cyanosis. NEUROLOGICAL: Patient is alert and oriented x 3. Motor and sensory are also intact. Cranial nerves II through XII grossly intact. Symmetrical smile. Normal speech, normal gait. PSYCH: Normal mood, normal affect. SKIN: Warm, Dry, normal turgor, no rashes or lesions noted. Limitations: no limitations Course Vital Signs 05/26/21 05/26/21 16:20 17:54 Temperature 98.4 F Pulse Rate 105 H Respiratory 18 Rate Blood Pressure 107/71 119/77 O2 Sat by Pulse 96 Oximetry Medical Decision Making - Medical Decision Making Patient is a 46-year-old female with history of A. fib, on Eliquis, diabetes, hypertension, CVA, presenting for lightheadedness, presyncopal episodes today. She is started on hydrochlorothiazide week and a half ago secondary to elevated blood pressures. Her blood pressure arrival was 107/71, rest of vitals normal. Patient's labs returned a white count of 31, neutrophils of 27.8. Patient states she has been working with Dr. Miramontes regarding elevated white counts over the past couple months. She did have to cancel her last appointment last month, they are still working on a diagnosis. She has no obvious signs of infection today, no fever, no pains anywhere. Rest of labs are unremarkable, urine shows no evidence of infection, chest x-ray shows prominent pericardial fat pad, no acute process. She received fluids, her blood pressures improved to 119/77. She's been asymptomatic here in the ER. I recommended discontinuing use of new medication. I also spoke with Dr. Miramontes's associate who is agreeable to outpatient follow-up. She can follow-up with Dr. Bay's office as well as Dr. Miramontes's office. Return parameters were discussed with her and she verbalized understanding. Case discussed with Dr. Hays. - Lab Data Result diagrams: 05/26/21 17:43 05/26/21 17:43 Lab Results 05/26/21 05/26/21 05/26/21 Range/Units 17:43 17:43 17:43 WBC 31.0 H (3.8-10.6) k/uL RBC 5.10 (3.80-5.40) m/uL Hgb 15.2 (11.4-16.0) gm/dL Hct 45.6 (34.0-46.0) % MCV 89.3 (80.0-100.0) fL MCH 29.8 (25.0-35.0) pg MCHC 33.4 (31.0-37.0) g/dL RDW 12.7 (11.5-15.5) % Plt Count 487 H (150-450) k/uL MPV 7.5 Neutrophils % 90 % Lymphocytes % 6 % Monocytes % 3 % Eosinophils % 1 % Basophils % 0 % Neutrophils # 27.8 H (1.3-7.7) k/uL Lymphocytes # 2.0 (1.0-4.8) k/uL Monocytes # 0.9 (0-1.0) k/uL Eosinophils # 0.2 (0-0.7) k/uL Basophils # 0.1 (0-0.2) k/uL PT 10.4 (9.0-12.0) sec INR 1.0 (<1.2) APTT 23.5 (22.0-30.0) sec Sodium (137-145) mmol/L Potassium (3.5-5.1) mmol/L Chloride (98-107) mmol/L Carbon Dioxide (22-30) mmol/L Anion Gap mmol/L BUN (7-17) mg/dL Creatinine (0.52-1.04) mg/dL Est GFR (CKD-EPI)AfAm (>60 ml/min/1.73 sqM) Est GFR (CKD-EPI)NonAf (>60 ml/min/1.73 sqM) Glucose (74-99) mg/dL Calcium (8.4-10.2) mg/dL Magnesium (1.6-2.3) mg/dL Total Bilirubin (0.2-1.3) mg/dL AST (14-36) U/L ALT (4-34) U/L Alkaline Phosphatase (38-126) U/L Troponin I (0.000-0.034) ng/mL Total Protein (6.3-8.2) g/dL Albumin (3.5-5.0) g/dL Urine Color Light Yellow Urine Appearance Clear (Clear) Urine pH 5.0 (5.0-8.0) Ur Specific [place] 1.032 (1.001-1.035) Urine Protein Negative (Negative) Urine Glucose (UA) 4+ H (Negative) Urine Ketones Negative (Negative) Urine Blood Negative (Negative) Urine Nitrite Negative (Negative) Urine Bilirubin Negative (Negative) Urine Urobilinogen <2.0 (<2.0) mg/dL Ur Leukocyte Esterase Small H (Negative) Urine RBC 1 (0-5) /hpf Urine WBC 3 (0-5) /hpf Ur Squamous Epith Cells 1 (0-4) /hpf Urine Mucus Rare H (None) /hpf 05/26/21 05/26/21 Range/Units 17:43 17:43 WBC (3.8-10.6) k/uL RBC (3.80-5.40) m/uL Hgb (11.4-16.0) gm/dL Hct (34.0-46.0) % MCV (80.0-100.0) fL MCH (25.0-35.0) pg MCHC (31.0-37.0) g/dL RDW (11.5-15.5) % Plt Count (150-450) k/uL MPV Neutrophils % % Lymphocytes % % Monocytes % % Eosinophils % % Basophils % % Neutrophils # (1.3-7.7) k/uL Lymphocytes # (1.0-4.8) k/uL Monocytes # (0-1.0) k/uL Eosinophils # (0-0.7) k/uL Basophils # (0-0.2) k/uL PT (9.0-12.0) sec INR (<1.2) APTT (22.0-30.0) sec Sodium 136 L (137-145) mmol/L Potassium 3.7 (3.5-5.1) mmol/L Chloride 104 (98-107) mmol/L Carbon Dioxide 21 L (22-30) mmol/L Anion Gap 11 mmol/L BUN 27 H (7-17) mg/dL Creatinine 0.95 (0.52-1.04) mg/dL Est GFR (CKD-EPI)AfAm 85 (>60 ml/min/1.73 sqM) Est GFR (CKD-EPI)NonAf 74 (>60 ml/min/1.73 sqM) Glucose 183 H (74-99) mg/dL Calcium 9.7 (8.4-10.2) mg/dL Magnesium 2.0 (1.6-2.3) mg/dL Total Bilirubin 1.0 (0.2-1.3) mg/dL AST 19 (14-36) U/L ALT 15 (4-34) U/L Alkaline Phosphatase 90 (38-126) U/L Troponin I 0.016 (0.000-0.034) ng/mL Total Protein 7.6 (6.3-8.2) g/dL Albumin 4.0 (3.5-5.0) g/dL Urine Color Urine Appearance (Clear) Urine pH (5.0-8.0) Ur Specific [place] (1.001-1.035) Urine Protein (Negative) Urine Glucose (UA) (Negative) Urine Ketones (Negative) Urine Blood (Negative) Urine Nitrite (Negative) Urine Bilirubin (Negative) Urine Urobilinogen (<2.0) mg/dL Ur Leukocyte Esterase (Negative) Urine RBC (0-5) /hpf Urine WBC (0-5) /hpf Ur Squamous Epith Cells (0-4) /hpf Urine Mucus (None) /hpf - EKG Data EKG Comments: Normal sinus rhythm, cannot rule out anterior infarct, age undetermined, no signs acute ST segment elevation. Ventricular rate 95, ME interval 148, QT 358. Similar to previous on 05/17/2020. Disposition Clinical Impression: Hypotension due to medication, Pre-syncope, Leukocytosis Disposition: HOME SELF-CARE Condition: Stable Instructions (If sedation given, give patient instructions): Hypotension (ED) Additional Instructions: Please return to the Emergency Department if symptoms worsen or any other concerns. Discontinue hydrochlorothiazide. Increase fluids. Please follow-up with Dr. Miramontes and Dr. Bay's office. Is patient prescribed a controlled substance at d/c from ED?: No Referrals: Jayy Henry MD [Primary Care Provider] - 1-2 days Miller Bay MD [STAFF PHYSICIAN] - 1-2 days Aramis Miramontes MD [STAFF PHYSICIAN] - 1-2 days Time of Disposition: 18:53
[2021-05-26 17:53] LABS: Basophils # (A) 0.1 k/uL (0-0.2); Basophils % (A) 0 %; Eosinophils # (A) 0.2 k/uL (0-0.7); Eosinophils % (A) 1 %; HCT 45.6 % (34.0-46.0); HGB 15.2 gm/dL (11.4-16.0); Lymphocytes % (A) 6 %; MCH 29.8 pg (25.0-35.0); MCHC 33.4 g/dL (31.0-37.0); MCV 89.3 fL (80.0-100.0); Mean Platelet Volume 7.5; Monocytes # (A) 0.9 k/uL (0-1.0); Monocytes % (A) 3 %; Neutrophils % (A) 90 %; Platelet Count 487 k/uL (150-450); RDW 12.7 % (11.5-15.5)
[2021-05-26 17:56] LABS: Appearance,Urine Clear (Clear); Bilirubin,Urine Negative (Negative); Blood,Urine Negative (Negative); Color,Urine Light Yellow; Glucose,Urine (UA) 4+ (Negative); Ketones,Urine Negative (Negative); Leukocyte Esterase,Urine Small (Negative); Mucus,Urine Rare /hpf; Nitrite,Urine Negative (Negative); Protein,Urine Negative (Negative); RBC,Urine 1 /hpf (0-5); Specific Gravity,Urine 1.032 (1.001-1.035); Squamous Epithelial Cell,Urine 1 /hpf (0-4); Urobilinogen,Urine <2.0 mg/dL (<2.0); WBC,Urine 3 /hpf (0-5)
[2021-05-26 18:01] LABS: Partial Thromboplastin Time 23.5 sec (22.0-30.0); Prothrombin Time 10.4 sec (9.0-12.0)
[2021-05-26 18:05] LABS: Calcium 9.7 mg/dL (8.4-10.2); Neutrophils # (A) 27.8 k/uL (1.3-7.7); Potassium 3.7 mmol/L (3.5-5.1); Total Protein 7.6 g/dL (6.3-8.2)
--- NOTE | 2021-05-26 18:23 | XR ---
EXAMINATION TYPE: XR chest 2V DATE OF EXAM: 05/26/2021 COMPARISON: 05/17/2020 HISTORY: Syncope TECHNIQUE: FINDINGS: Heart and mediastinum are normal. There is right-sided prominent pericardial fat pad. Costo phrenic angles are clear. There are no hilar masses. Bony thorax is intact. IMPRESSION: No active cardiopulmonary disease. No change.
[2021-05-26 19:11] VITALS: BP 112/72
== END 2021-05-26 19:10 | disposition home or self-care (01) ==
LOC: EC 14:47
DX: I95.2 Hypotension due to drugs (principal); D72.829 Elevated white blood cell count, unspecified; E11.9 Type 2 diabetes mellitus without complications; I10 Essential (primary) hypertension; I48.91 Unspecified atrial fibrillation; Z79.4 Long term (current) use of insulin; Z79.82 Long term (current) use of aspirin; Z86.73 Personal history of transient ischemic attack (TIA), and cerebral infarction without residual deficits; Z90.49 Acquired absence of other specified parts of digestive tract
CPT/HCPCS: 36415; 71046; 80053; 81001; 83735; 84484; 85025; 85610; 85730; 93005; 99284

== ENCOUNTER → 2021-06-16 | Outpatient (CLI) | payer BC ==
--- NOTE | 2021-06-16 11:44 | MM ---
Reason for exam: follow-up at short interval from prior study. Last mammogram was performed 9 months ago. History: Benign MG stereo VAD BX RT of the right breast, December 12, 2020. Benign ultrasound-guided core biopsy of the right breast, September 2020. Physical Findings: Nurse did not find any significant physical abnormalities on exam. MG Diagnostic Mammo RT w CAD CC, MLO, XCCL, and LM view(s) were taken of the right breast. Prior study comparison: September 26, 2020, mammogram. September 10, 2020, mammogram. The breast tissue is heterogeneously dense. This may lower the sensitivity of mammography. Previous mammotome biopsy in the right breast x 3. Right upper outer quadrant focal asymmetry unchanged for 9 months. Continued follow up recommended. It becomes more defined on some views and appears to disperse on others. These results were verbally communicated with the patient and result sheet given to the patient on 06/16/21. ASSESSMENT: Probably benign, BI-RAD 3 RECOMMENDATION: Follow-up diagnostic mammogram of both breasts in 3 months.
== END | disposition home or self-care (01) ==
LOC: RADMAMWWP 09:54
PROVIDERS: ATTEND Surgery
DX: N64.89 Other specified disorders of breast (principal)
CPT/HCPCS: 77065

== ENCOUNTER → 2021-06-19 | Outpatient (CLI) | payer BC ==
[2021-06-19 10:06] VITALS: BP 150/88; PULSE 78; RESP 18; TEMP 98.3
--- NOTE | 2021-06-19 10:31 | P.PN ---
Subjective Progress Note Date: 06/19/21 Principal diagnosis: Fibrocystic breast changes Dayanara is a 45-year-old white female seen in consultation for Erika New regarding a radiographic abnormality in the right breast on 11-28-20. She had a bilateral screening mammogram performed on 2920. She was noted to have a focal asymmetry 2.3 cm in the upper quadrant of the right breast at middle depth. There was a question of a second smaller 1.2 cm area of focal asymmetry adjacent. Further evaluation was recommended. She subsequently underwent a right breast ultrasound on . This revealed a 0.8 x 0.9 cm area as well as a second area measuring 1 x 0 1.4 cm which was lobular. Ultrasound-guided core biopsy was recommended. Ultrasound core biopsy was performed on . Pathology revealed fibrocystic changes with ductal dilatation, periductal chronic inflammation and fibrotic changes. Mammogram following ultrasound core biopsy revealed that the area which had been sampled was not in the same spot as the region seen on the mammogram. Therefore stereotactic core biopsy of the lesion in the right breast seen on mammogram was recommended. These films are reviewed with Dr. Cowan and he concurs although he sees only one area of concern. That was the patient's first mammogram. She did not feel any lumps masses or nodules of concern in her breast. She was not complaining of any nipple discharge. She had not had any recent trauma or infection in the breast. The patient underwent ultrasound-guided core biopsy of 2 sites in the right breast on . Pathology was fibrocystic changes. However it was felt that the area of concern seen on mammogram was not the same site and therefore she underwent stereotactic core biopsy of the site seen on the mammogram. 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 At this time she is not complaining of any lumps, masses or nodules of concern. Took one COVID vaccine in January (Maderna), has had multiple allergic reactions since the vaccine. Was told not to take the second vaccine. Her developed severe adenopathy and was admited to hospital twice, told ot was related to the vaccine. Caffeine: none nicotine: none chocolate: weekly Family history: father: lymphoma, multiple myloma, leukemia Hormonal History: menarche: 11 , breast fed: yes, age at first : 22 periods irregular, ablation last month (bleeding on eliquis) BCP: none Medical history: 1. Patient had a mini stroke in May 2020 2. Diabetic 3. Hypertension 4. afib (she is on eliquis and aspirin) 5. high WBC follows with Dr. Miramontes, will follow up with [facility] Dr. Surgical history: 1. Uterine ablation 2. Cholecystectomy Social History: smoke: none alcohol: none drugs: none - Constitutional Constitutional: Denies chills, Denies fever - EENT Eyes: denies blurred vision, denies pain Ears: deny: decreased hearing, tinnitus Ears, nose, mouth and throat: Denies headache, Denies sore throat - Breasts Breasts: bilateral: as per HPI - Cardiovascular Comment: HTN Cardiovascular: Denies chest pain, Denies shortness of breath - Respiratory Respiratory: Denies cough - Gastrointestinal Gastrointestinal: Reports diarrhea, Denies abdominal pain, Denies nausea, Denies vomiting - Genitourinary (Female) Genitourinary: Denies dysuria, Denies hematuria - Menstruation Menstruation: Reports as per HPI - Musculoskeletal Musculoskeletal: Denies myalgias - Integumentary Integumentary: Denies pruritus, Denies rash - Neurological Comment: TIA Neurological: Denies numbness, Denies weakness - Psychiatric Psychiatric: Denies anxiety, Denies depression - Endocrine Endocrine: Reports weight change, Denies fatigue - Hematologic/Lymphatic Comment: baby aspirin - Allergic/Immunologic Allergic/Immunologic: Reports as per HPI Objective - Vital Signs Vital signs: Vital Signs Temp 98.3 F 06/19/21 10:04 Pulse 78 06/19/21 10:04 Resp 18 06/19/21 10:04 BP 150/88 06/19/21 10:04 Pulse Ox 100 06/19/21 10:04 Intake & Output 06/18/21 06/19/21 06/19/21 18:59 06:59 18:59 Weight 99.79 kg - Exam BMI 36.6 - Constitutional General appearance: Present: cooperative - EENT Eyes: Present: EOMI ENT: Present: hearing grossly normal - Neck Neck: Present: normal ROM - Respiratory Respiratory: bilateral: CTA - Cardiovascular Rhythm: regular Heart sounds: normal: S1, S2 - Gastrointestinal General gastrointestinal: Present: soft - Integumentary Integumentary: Present: normal turgor - Musculoskeletal Musculoskeletal: Present: gait normal - Psychiatric Psychiatric: Present: A&O x's 3, appropriate affect, intact judgment & insight - Additional findings Additional findings: Breast Exam: BRA: 42DD inspection: bilateral grade 3 ptosis Palpation: Right breast: Multi-positional exam fibrocystic changes no dominant masses or nodules of concern Right axilla: No adenopathy of concern Left breast: Multi-positional exam fibrocystic changes no dominant masses or nodules of concern Left axilla: No adenopathy of concern Assessment and Plan Assessment: Impression: Fibrocystic breast changes Recent right breast mammogram recommends bilateral mammogram in 3 months Plan: Bilateral mammogram 3 months with physician exam at that time CC: Dr. Henry
== END ==
LOC: WWCWWP 09:47
PROVIDERS: ATTEND Surgery
DX: N60.11 Diffuse cystic mastopathy of right breast (principal); N60.12 Diffuse cystic mastopathy of left breast; E11.9 Type 2 diabetes mellitus without complications; I10 Essential (primary) hypertension; I48.91 Unspecified atrial fibrillation

== ENCOUNTER → 2021-10-03 | Outpatient (CLI) | payer BC ==
--- NOTE | 2021-10-03 11:45 | MM ---
Reason for exam: additional evaluation requested from prior study. Last mammogram was performed 4 months ago. History: Benign MG stereo VAD BX RT of the right breast, December 12, 2020. Benign ultrasound-guided core biopsy of the right breast, September 2020. Physical Findings: A clinical breast exam by your physician is recommended on an annual basis and results should be correlated with mammographic findings. MG Diagnostic Mammo w CAD ILYA Bilateral CC and MLO view(s) were taken. Prior study comparison: June 16, 2021, right breast MG diagnostic mammo RT w CAD. September 26, 2020, mammogram. The breast tissue is heterogeneously dense. This may lower the sensitivity of mammography. Previous mammotome biopsy in the right breast. There is chronic nodularity bilaterally. There is no dominant lesion. No significant new findings when compared with previous films. These results were verbally communicated with the patient and result sheet given to the patient on 10/03/21. ASSESSMENT: Benign, BI-RAD 2 RECOMMENDATION: Routine screening mammogram of both breasts in 1 year.
== END | disposition home or self-care (01) ==
LOC: RADMAMWWP 10:57
PROVIDERS: ATTEND Surgery
DX: R92.8 Other abnormal and inconclusive findings on diagnostic imaging of breast (principal)
CPT/HCPCS: 77066

== ENCOUNTER → 2021-10-30 | Outpatient (CLI) | payer BC ==
[2021-10-30 16:28] VITALS: BP 156/85; PULSE 88; RESP 18; TEMP 98.3
--- NOTE | 2021-10-30 16:41 | P.PN ---
Subjective Progress Note Date: 10/30/21 Principal diagnosis: fibrocystic breast changes Fibrocystic breast changes Dayanara is a 45-year-old white female seen in consultation for Erika New regarding a radiographic abnormality in the right breast on 11-28-20. She had a bilateral screening mammogram performed on 2920. She was noted to have a focal asymmetry 2.3 cm in the upper quadrant of the right breast at middle depth. There was a question of a second smaller 1.2 cm area of focal asymmetry adjacent. Further evaluation was recommended. She subsequently underwent a right breast ultrasound on . This revealed a 0.8 x 0.9 cm area as well as a second area measuring 1 x 0 1.4 cm which was lobular. Ultrasound-guided core biopsy was recommended. Ultrasound core biopsy was performed on . Pathology revealed fibrocystic changes with ductal dilatation, periductal chronic inflammation and fibrotic changes. Mammogram following ultrasound core biopsy revealed that the area which had been sampled was not in the same spot as the region seen on the mammogram. Therefore stereotactic core biopsy of the lesion in the right breast seen on mammogram was recommended. These films are reviewed with Dr. Cowan and he concurs although he sees only one area of concern. That was the patient's first mammogram. She did not feel any lumps masses or nodules of concern in her breast. She was not complaining of any nipple discharge. She had not had any recent trauma or infection in the breast. The patient underwent ultrasound-guided core biopsy of 2 sites in the right breast on . Pathology was fibrocystic changes. However it was felt that the area of concern seen on mammogram was not the same site and therefore she underwent stereotactic core biopsy of the site seen on the mammogram. 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 At this time she is not complaining of any lumps, masses or nodules of concern. Took one COVID vaccine in January ([place]), has had multiple allergic reactions since the vaccine. Was told not to take the second vaccine. Her developed severe adenopathy and was admited to hospital twice, told ot was related to the vaccine. A bilateral mammogram was done on 10-03-21 which was benign BIRAD 2. She has not noted any new lumps masses or nodules of concern in either breast. Caffeine: none nicotine: none chocolate: weekly Family history: father: lymphoma, multiple myloma, leukemia Hormonal History: menarche: 11 , breast fed: yes, age at first : 22 periods irregular, ablation last month (bleeding on eliquis) BCP: none Medical history: 1. Patient had a mini stroke in May 2020 2. Diabetic 3. Hypertension 4. afib (she is on eliquis and aspirin) 5. high WBC follows with Dr. Miramontes, will follow up with [facility] Dr. Surgical history: 1. Uterine ablation 2. Cholecystectomy Social History: smoke: none alcohol: none drugs: none - Constitutional Constitutional: Denies chills, Denies fever - EENT Eyes: denies blurred vision, denies pain Ears: deny: decreased hearing, tinnitus Ears, nose, mouth and throat: Denies headache, Denies sore throat - Breasts Breasts: bilateral: as per HPI - Cardiovascular Comment: HTN Cardiovascular: Denies chest pain, Denies shortness of breath - Respiratory Respiratory: Denies cough - Gastrointestinal Gastrointestinal: Reports diarrhea, Denies abdominal pain, Denies nausea, Denies vomiting - Genitourinary (Female) Genitourinary: Denies dysuria, Denies hematuria - Menstruation Menstruation: Reports as per HPI - Musculoskeletal Musculoskeletal: Denies myalgias - Integumentary Integumentary: Denies pruritus, Denies rash - Neurological Comment: TIA Neurological: Denies numbness, Denies weakness - Psychiatric Psychiatric: Denies anxiety, Denies depression - Endocrine Endocrine: Reports weight change, Denies fatigue - Hematologic/Lymphatic Comment: baby aspirin - Allergic/Immunologic Allergic/Immunologic: Reports as per HPI Objective - Vital Signs Vital signs: Vital Signs Temp 98.3 F 10/30/21 16:25 Pulse 88 10/30/21 16:25 Resp 18 10/30/21 16:25 BP 156/85 10/30/21 16:25 Pulse Ox 98 10/30/21 16:25 Intake & Output 10/29/21 10/30/21 10/30/21 18:59 06:59 18:59 Weight 110.677 kg - Constitutional General appearance: Present: cooperative - EENT Eyes: Present: EOMI ENT: Present: hearing grossly normal - Neck Neck: Present: normal ROM - Respiratory Respiratory: bilateral: CTA - Cardiovascular Rhythm: regular Heart sounds: normal: S1, S2 - Integumentary Integumentary: Present: normal turgor - Musculoskeletal Musculoskeletal: Present: gait normal - Psychiatric Psychiatric: Present: A&O x's 3, appropriate affect, intact judgment & insight - Additional findings Additional findings: Breast Exam: BRA: 42D inspection: bilateral grade 3 ptosis palpation: right breast: Multi-positional exam fibrocystic changes no dominant masses or nodules of concern Right axilla: No adenopathy of concern Left breast: Multi-positional exam fibrocystic changes no dominant masses or nodules of concern Left axilla: No adenopathy of concern Fungal infection underneath both breast Assessment and Plan Assessment: Impression: 1. Patient had a mini stroke in May 2020 2. Diabetic 3. Hypertension 4. afib (she is on eliquis and aspirin) 5. high WBC follows with Dr. Miramontes, will follow up with [facility] 6. Fibrocystic breast changes 7. Bilateral fungal infection under the breast Plan: Repeat bilateral mammogram September 2022 Nystatin under breast She did call sooner any concerns CC: Dr. Henry
== END ==
LOC: WWCWWP 16:14
PROVIDERS: ATTEND Surgery
DX: N60.11 Diffuse cystic mastopathy of right breast (principal); N60.12 Diffuse cystic mastopathy of left breast; E11.9 Type 2 diabetes mellitus without complications; I10 Essential (primary) hypertension; I48.91 Unspecified atrial fibrillation; Z79.01 Long term (current) use of anticoagulants; B36.8 Other specified superficial mycoses; D72.829 Elevated white blood cell count, unspecified; Z86.73 Personal history of transient ischemic attack (TIA), and cerebral infarction without residual deficits

== ENCOUNTER → 2022-11-12 | Outpatient (CLI) | payer BC ==
[2022-11-12 10:16] VITALS: BP 159/94; PULSE 108; RESP 17; TEMP 98.3
--- NOTE | 2022-11-13 12:47 | P.PN ---
Progress Note - Text Progress Note Date: 11/13/22 The patient was called with her mammogram results from 2305. This was a bilateral mammogram which was BIRADS 1. The patient states that she does not have any concerns regarding her breasts at this time. Her platelet was canceled secondary to an emergency surgery. The patient was given the option of rescheduling appointment however at this time she states she does not have any concerns regarding her breasts and will follow up in 1 year unless anything changes. Cc: Dr. Henry
== END ==
LOC: WWCWWP 09:59
PROVIDERS: ATTEND Surgery
DX: Z53.9 Procedure and treatment not carried out, unspecified reason (principal)